=== PATIENT | male | born 1980 | race Caucasian/White ===

== ENCOUNTER 2016-09-16 14:27 | Observation (INO) | payer MEDICAID ==
[2016-09-16] MEDS ORDERED: Sodium Chloride 0.9% 1,000 ML IV ONE (14:51)
[2016-09-16] MEDS ORDERED: Sodium Chloride 0.9% 2.5 ML Syringe FLUSH PRN (14:51)
[2016-09-16] MEDS ORDERED: Sodium Chloride 0.9% 10 ML Syringe FLUSH PRN (14:51)
--- NOTE | 2016-09-16 14:55 | EDM.PDOC ---
ED HPI GENERAL MEDICAL PROBLEM - General Chief Complaint: Neuro Symptoms/Deficits Stated Complaint: SEIZURE Time Seen by Provider: 09/16/16 14:50 - History of Present Illness INITIAL COMMENTS - FREE TEXT/NARRATIVE: HISTORY AND PHYSICAL: History of present illness: Patient is a 36-year-old male with a history of prior CVA x2 who is at [facility] who presents with concern of altered mental status who became unresponsive earlier today he had some eye twitching no other motor findings and no other change from his baseline with the exception of the altered mental status. There's been no reported fever recently cough shortness of breath or other complaints Review of systems: As per history of present illness and below otherwise all systems reviewed and negative. Past medical history: As per history of present illness and as reviewed below otherwise noncontributory. Surgical history: As per history of present illness and as reviewed below otherwise noncontributory. Social history: No reported history of drug or alcohol abuse. Family history: As per history of present illness and as reviewed below otherwise noncontributory. Physical exam: HEENT: Atraumatic, normocephalic, negative for conjunctival pallor or scleral icterus, mucous membranes moist, throat clear, neck supple, nontender, trachea midline. Prior tracheostomy scar noted Lungs: Clear to auscultation, breath sounds equal bilaterally, chest nontender. Heart: S1S2, regular, negative for clicks, rubs, or JVD. Abdomen: Soft, nondistended, nontender. Negative for masses or hepatosplenomegaly. Negative for costovertebral tenderness. Pelvis: Stable nontender. Genitourinary: Deferred. Rectal: Deferred. Extremities: Atraumatic, negative for cords or calf pain. Neurovascular unremarkable. Neuro: Patient has his eyes closed any attempt to open his eyes his met with forceful closure by the patient Diagnostics: CBC CMP PT/INR troponin UA chest x-ray EKG lactic acid blood culture x2 ammonia level CT brain Therapeutics: IV O2 monitor Impression: #1 altered mental status #2 history of CVA x2 #3 rule out hepatic encephalopathy Definitive disposition and diagnosis as appropriate pending reevaluation and review of above. - Related Data Allergies Allergy/AdvReac Type Severity Reaction Status Date / Time No Known Allergies Allergy Verified 09/16/14 08:15 Social & Family History - Tobacco Use Smoking Status *Q: Never Smoker Second Hand Smoke Exposure: No - Alcohol Use Days Per Week of Alcohol Use: 0 - Recreational Drug Use Recreational Drug Use: No ED ROS GENERAL - Review of Systems Review Of Systems: ROS reveals no pertinent complaints other than HPI. ED EXAM, GENERAL - Physical Exam Exam: See Below (See dictation) Course - Vital Signs Last Recorded V/S: Last Vital Signs Temp 35.9 C 09/16/16 14:27 Pulse 91 09/16/16 14:27 Resp 10 L 09/16/16 14:27 BP 136/98 H 09/16/16 14:27 Pulse Ox 98 09/16/16 14:27 - Orders/Labs/Meds Orders: Active Orders 24 hr Category Date Time Status Cardiac Monitoring [RC] . DIRECTED Care 09/16/16 14:50 Active EKG Documentation Completion [RC] STAT Care 09/16/16 14:51 Active Oxygen Therapy, ED [RC] ASDIRECTED Care 09/16/16 14:50 Active Pulse Oximetry [RC] ASDIRECTED Care 09/16/16 14:51 Active Chest 1V Frontal [CR] Stat Exams 09/16/16 14:51 Taken Head wo Cont [CT] Stat Exams 09/16/16 14:51 Taken UA W/MICROSCOPIC [URIN] Stat Lab 09/16/16 14:51 Uncollected Sodium Chloride 0.9% [Saline Flush] Med 09/16/16 14:51 Active 10 ml FLUSH ASDIRECTED PRN Sodium Chloride 0.9% [Saline Flush] Med 09/16/16 14:51 Active 2.5 ml FLUSH ASDIRECTED PRN Saline Lock Insert [OM.PC] Stat Oth 09/16/16 14:50 Ordered Medication Orders Sodium Chloride (Saline Flush) 10 ml FLUSH ASDIRECTED PRN PRN Reason: Keep Vein Open Sodium Chloride (Saline Flush) 2.5 ml FLUSH ASDIRECTED PRN PRN Reason: Keep Vein Open Labs: Laboratory Tests 09/16/16 09/16/16 09/16/16 Range/Units 15:04 15:04 15:04 WBC 8.08 (4.0-11.0) K/uL RBC 5.98 H (4.50-5.90) M/uL Hgb 17.2 H (13.0-17.0) g/dL Hct 52.3 H (38.0-50.0) % MCV 87.5 (80.0-98.0) fL MCH 28.8 (27.0-32.0) pg MCHC 32.9 (31.0-37.0) g/dL RDW Std Deviation 44.3 (28.0-62.0) fl RDW Coeff of Claudette 14 (11.0-15.0) % Plt Count 212 (150-400) K/uL MPV 11.50 (7.40-12.00) fL Neut % (Auto) 69.5 (48.0-80.0) % Lymph % (Auto) 18.1 (16.0-40.0) % Grainger % (Auto) 10.4 (0.0-15.0) % Eos % (Auto) 1.6 (0.0-7.0) % Baso % (Auto) 0.4 (0.0-1.5) % Neut # (Auto) 5.6 (1.4-5.7) K/uL Lymph # (Auto) 1.5 (0.6-2.4) K/uL Grainger # (Auto) 0.8 (0.0-0.8) K/uL Eos # (Auto) 0.1 (0.0-0.7) K/uL Baso # (Auto) 0.0 (0.0-0.1) K/uL Nucleated RBC % 0.0 /100WBC Nucleated RBCs # 0 K/uL INR 0.97 (0.86-1.11) Lactate 1.7 (0.20-2.00) mmol/L Sodium (136-146) mmol/L Potassium (3.5-5.1) mmol/L Chloride (98-110) mmol/L Carbon Dioxide (21-31) mmol/L BUN (6.0-23.0) mg/dL Creatinine (0.6-1.5) mg/dL Est Cr Clr Drug Dosing mL/min Estimated GFR (MDRD) ml/min Glucose (60-110) mg/dL Calcium (8.8-10.8) mg/dL Total Bilirubin (0.1-1.5) mg/dL AST (5-40) IU/L ALT (8-54) IU/L Alkaline Phosphatase (40-150) Ammonia (14-68) UG/DL Troponin I (0.0-0.29) NG/ML Total Protein (6.0-8.0) g/dL Albumin (3.5-5.0) g/dL Globulin (2.0-3.5) g/dL Albumin/Globulin Ratio (1.3-2.8) Prolactin (1-23) ng/mL 09/16/16 09/16/16 09/16/16 Range/Units 15:04 15:04 15:04 WBC (4.0-11.0) K/uL RBC (4.50-5.90) M/uL Hgb (13.0-17.0) g/dL Hct (38.0-50.0) % MCV (80.0-98.0) fL MCH (27.0-32.0) pg MCHC (31.0-37.0) g/dL RDW Std Deviation (28.0-62.0) fl RDW Coeff of Claudette (11.0-15.0) % Plt Count (150-400) K/uL MPV (7.40-12.00) fL Neut % (Auto) (48.0-80.0) % Lymph % (Auto) (16.0-40.0) % Grainger % (Auto) (0.0-15.0) % Eos % (Auto) (0.0-7.0) % Baso % (Auto) (0.0-1.5) % Neut # (Auto) (1.4-5.7) K/uL Lymph # (Auto) (0.6-2.4) K/uL Grainger # (Auto) (0.0-0.8) K/uL Eos # (Auto) (0.0-0.7) K/uL Baso # (Auto) (0.0-0.1) K/uL Nucleated RBC % /100WBC Nucleated RBCs # K/uL INR (0.86-1.11) Lactate (0.20-2.00) mmol/L Sodium 137 (136-146) mmol/L Potassium 4.6 (3.5-5.1) mmol/L Chloride 101 (98-110) mmol/L Carbon Dioxide 25 (21-31) mmol/L BUN 19 (6.0-23.0) mg/dL Creatinine 0.8 (0.6-1.5) mg/dL Est Cr Clr Drug Dosing 122.31 mL/min Estimated GFR (MDRD) > 60.0 ml/min Glucose 92 (60-110) mg/dL Calcium 9.4 (8.8-10.8) mg/dL Total Bilirubin 0.4 (0.1-1.5) mg/dL AST 43 H (5-40) IU/L ALT 73 H (8-54) IU/L Alkaline Phosphatase 162 H (40-150) Ammonia 81 H (14-68) UG/DL Troponin I < 0.10 (0.0-0.29) NG/ML Total Protein 8.3 H (6.0-8.0) g/dL Albumin 3.9 (3.5-5.0) g/dL Globulin 4.4 H (2.0-3.5) g/dL Albumin/Globulin Ratio 0.9 L (1.3-2.8) Prolactin 19 (1-23) ng/mL Meds: Medications Generic Name Dose Route Start Last Admin Trade Name Freq PRN Reason Stop Dose Admin Sodium Chloride 10 ml 09/16/16 14:51 Saline Flush FLUSH ASDIRECTED PRN Keep Vein Open Sodium Chloride 2.5 ml 09/16/16 14:51 Saline Flush FLUSH ASDIRECTED PRN Keep Vein Open Discontinued Medications Generic Name Dose Route Start Last Admin Trade Name Freq PRN Reason Stop Dose Admin Sodium Chloride 1,000 mls @ 999 mls/hr 09/16/16 14:51 09/16/16 15:49 Normal Saline IV 09/16/16 15:51 999 mls/hr STAT ONE Administration Departure - Departure Time of Disposition: 16:16 Disposition: Admitted As Inpatient 65 Condition: good Clinical Impression: Altered mental status, Hyperammonemia Forms: ED Department Discharge - My Orders Last 24 Hours: My Active Orders 09/16/16 14:50 Cardiac Monitoring [RC] . DIRECTED Oxygen Therapy, ED [RC] ASDIRECTED Saline Lock Insert [OM.PC] Stat 09/16/16 14:51 EKG Documentation Completion [RC] STAT Pulse Oximetry [RC] ASDIRECTED Chest 1V Frontal [CR] Stat Head wo Cont [CT] Stat UA W/MICROSCOPIC [URIN] Stat Sodium Chloride 0.9% [Saline Flush] 10 ml FLUSH ASDIRECTED PRN Sodium Chloride 0.9% [Saline Flush] 2.5 ml FLUSH ASDIRECTED PRN - Assessment/Plan Last 24 Hours: My Active Orders 09/16/16 14:50 Cardiac Monitoring [RC] . DIRECTED Oxygen Therapy, ED [RC] ASDIRECTED Saline Lock Insert [OM.PC] Stat 09/16/16 14:51 EKG Documentation Completion [RC] STAT Pulse Oximetry [RC] ASDIRECTED Chest 1V Frontal [CR] Stat Head wo Cont [CT] Stat UA W/MICROSCOPIC [URIN] Stat Sodium Chloride 0.9% [Saline Flush] 10 ml FLUSH ASDIRECTED PRN Sodium Chloride 0.9% [Saline Flush] 2.5 ml FLUSH ASDIRECTED PRN
[2016-09-16 15:48] LABS: CHLORIDE,CL 101 mmol/L (98-110); SODIUM,NA 137 mmol/L (136-146)
--- NOTE | 2016-09-16 16:18 | CT ---
EXAM DATE: 09/16/16 PATIENT'S AGE: 36 Patient: JAMEY STROKE Facility: [facility], [place], [place] : 09/16/1970 Study: CT Head STROKE PROTOCOL -09/16/2016 2:46:11 PM Ordering Physician: justa Final Report: INDICATION: Stroke code. Technique: Technique: CT head without IV contrast. Findings: Left occipital craniectomy. Large amount of encephalomalacia and low density involving both cerebellar hemispheres consistent with prior insult either related to old infarct, postsurgical encephalomalacia, or encephalomalacia from other trauma. Comparison previous imaging of the brain would be helpful in ensuring these abnormalities are stable. Old sylvester hole right frontal calvarium. No acute intracranial hemorrhage, edema or mass effect. Minimal cerebral atrophy. Remainder negative. Impression: 1. No acute intracranial disease including no intracranial hemorrhage. 2. Postoperative changes of left occipital craniectomy with large amount of abnormal low-density and CSF density involving the cerebellar hemispheres bilaterally most consistent with encephalomalacia with possible etiologies as described above. Comparison with any available previous imaging of the brain would be helpful in ensuring this is stable. Other findings as above. Dictated by Edy Schafer MD @ Sep 16 2016 3:02PM (Electronic Signature) Report Signed by Proxy and Original Signed Document filed in the Medical Record. MTDD
--- NOTE | 2016-09-16 16:29 | CR ---
EXAM DATE: 09/16/16 PATIENT'S AGE: 36 Patient: JAMEY GRAVES Facility: [place], [place] Site . Site : [id number] Study: XRay Chest [id number]/25/2017 3:31:37 PM Ordering Physician: Jhonatan Arboleda Final Report: INDICATION: Stroke. COMPARISON: 8:20 a.m. 09/16/2014 chest radiograph. FINDINGS/IMPRESSION: Shallow inspiration. Minimal bibasilar stranding consistent with atelectasis, slightly increased. No focal lung consolidation or pleural effusion. Normal cardiomediastinal contour and the osseous structures. Dictated by Roger Kitchen MD @ 09/16/2016 3:57:54 PM Dictated by: Roger Kitchen MD @ 09/16/2016 15:58:02 (Electronic Signature) Report Signed by Proxy and Original Signed Document filed in the Medical Record. MTDD
[2016-09-16] MEDS ORDERED: Bisacodyl 10 MG Supp RECTAL PRN (22:11)
[2016-09-16] MEDS ORDERED: Albuterol/Ipratropium 3.0-0.5 MG/3 ML Neb Soln INH PRN (22:11)
[2016-09-16] MEDS ORDERED: Sodium Chloride 0.9% 1,000 ML IV SCH (22:15)
--- NOTE | 2016-09-16 22:23 | PCM.HP ---
H&P History of Present Illness - General Admit Problem/Dx: Admission Diagnosis/Problem Admission Diagnosis/Problem Altered mental status - History of Present Illness Initial Comments - Free Text/Narative: 36 yo male resident of [facility] with pmh of CVA who presents with altered mental status. He was found to be unresponsive at [facility]. He was evaluated in the ED with unremarkable head CT. His Hgb was elevated suggesting dehydration. He was given IV fluids and transfered to the floor. He is much more awake on the floor and has no complaints. From electra at baseline he can walk with one assist, has slurred speech and uses Pegtub for feedings. - Related Data Allergies/Adverse Reactions: Allergies Allergy/AdvReac Type Severity Reaction Status Date / Time No Known Allergies Allergy Verified 09/16/16 16:18 Home Medications: Home Meds Acetaminophen [Tylenol Solution] 1,000 mg PEGTUBE Q6HR PRN 09/16/16 [History] Aspirin [Adult Low Dose Aspirin EC] 81 mg PEGTUBE DAILY 09/16/16 [History] Bisacodyl [Dulcolax] 10 mg RECTAL DAILY PRN 09/16/16 [History] Cholecalciferol (Vitamin D3) [Vitamin D3] 2,000 mg PEGTUBE DAILY 09/16/16 [ History] Cyclobenzaprine HCl 5 mg PEGTUBE TID 09/16/16 [History] Docusate Sodium/Sennosides [Senna Plus] 1 tab PEGTUBE DAILY 09/16/16 [History] Ipratropium/Albuterol Sulfate [Iprat-Albut 0.5-3(2.5) mg/3 ml] 3 ml INH Q6HR PRN 09/16/16 [History] Nystatin 1 dose TOP BID 09/16/16 [History] Ondansetron [Zofran ODT] 4 mg PEGTUBE Q4HR PRN 09/16/16 [History] Pregabalin [Lyrica] 50 mg PO TID 09/16/16 [History] Ranitidine HCl 10 ml PEGTUBE BID 09/16/16 [History] Sennosides/Docusate Sodium [Sennosides-Docusate Sodium] 1 tab PEGTUBE BID [History] Sertraline HCl 25 mg PEGTUBE DAILY 09/16/16 [History] Zolpidem [Ambien] 5 mg PEGTUBE BEDTIME PRN 09/16/16 [History] atorvaSTATin Calcium [Atorvastatin Calcium] 10 mg PEGTUBE BEDTIME 09/16/16 [ History] Past Medical History Cardiovascular History: Reports: Hypertension Respiratory History: Reports: COPD, Other (see below) Other Respiratory History: pulmonary edema Gastrointestinal History: Reports: GERD Musculoskeletal History: Reports: Other (see below) Other Musculoskeletal History: hemiplegia. spondylolysis Neurological History: Reports: CVA, Other (see below) Other Neuro History: hemiplegia Psychiatric History: Reports: Depression - Past Surgical History GI Surgical History: Reports: Other (see below) Other GI Surgeries/Procedures: PEG tube Social & Family History - Tobacco Use Smoking Status *Q: Unknown Ever Smoked Second Hand Smoke Exposure: No - Caffeine Use Caffeine Use: Reports: Coffee - Alcohol Use Days Per Week of Alcohol Use: 0 - Recreational Drug Use Recreational Drug Use: No H&P Review of Systems - Review of Systems: Review Of Systems: See Below General: Reports: no symptoms HEENT: Reports: no symptoms Pulmonary: Reports: No Symptoms Cardiovascular: Reports: no symptoms Gastrointestinal: Reports: No symptoms Genitourinary: Reports: no symptoms Musculoskeletal: Reports: no symptoms Skin: Reports: no symptoms Psychiatric: Reports: no symptoms Neurological: Reports: No Symptoms Hematologic/Lymphatic: Reports: no symptoms Immunologic: Reports: no symptoms Exam - Exam Exam: See Below - Vital Signs Vital Signs: Last Vital Signs Temp 36.8 C 09/16/16 20:00 Pulse 83 09/16/16 20:00 Resp 16 09/16/16 20:00 BP 128/79 09/16/16 20:00 Pulse Ox 92 L 09/16/16 20:00 Weight: 98 kg - Exam General: alert, cooperative Lungs: Clear to auscultation, Normal respiratory effort Cardiovascular: regular rate, regular rhythm Abdomen: normal bowel sounds, soft Extremities: normal inspection Skin: warm, dry, intact Neurological: strength equal bilateral, other (full range of motion of upper and lower arms but is discordinated in movement more so on right side.) - Patient Data Lab Results last 24 hrs: Laboratory Results - last 24 hr 09/16/16 Range/Units 17:04 Urine Color YELLOW Urine Appearance CLEAR Urine pH 7.5 (5.0-8.0) Ur Specific [place] 1.010 (1.001-1.035) Urine Protein NEGATIVE (NEGATIVE) mg/dL Urine Glucose (UA) NEGATIVE (NEGATIVE) mg/dL Urine Ketones NEGATIVE (NEGATIVE) mg/dL Urine Occult Blood NEGATIVE (NEGATIVE) Urine Nitrite NEGATIVE (NEGATIVE) Urine Bilirubin NEGATIVE (NEGATIVE) Urine Urobilinogen 0.2 (<2.0) EU/dL Ur Leukocyte Esterase NEGATIVE (NEGATIVE) Urine RBC 0-2 (0-2/HPF) Urine WBC 0-2 (0-5/HPF) Ur Epithelial Cells OCCASIONAL (NONE-FEW) Urine Bacteria FEW (NEGATIVE) Result Diagrams: 09/17/16 04:24 09/17/16 04:24 *Q Meaningful Use (ADM) - VTE *Q VTE Criteria *Q: - Stroke *Q Stroke Criteria *Q: - AMI *Q AMI Criteria *Q: Problem List Initiated/Reviewed/Updated: Yes Orders Last 24hrs: Active Orders 24 hr Category Date Time Status Antiembolic Devices [RC] PER UNIT ROUTINE Care 09/16/16 22:15 Ordered Oxygen Therapy [RC] PRN Care 09/16/16 22:14 Ordered Telemetry Monitoring [Cardiac Monitoring] [RC] . Care 09/16/16 20:09 Active DIRECTED Tube Feeding [Enteral Feedings] [RC] Click To Edit Care 09/16/16 21:30 Inactive VTE/DVT Education [RC] PER UNIT ROUTINE Care 09/16/16 22:14 Ordered Vital Signs [RC] Q4H Care 09/16/16 22:14 Ordered Tube Feeding Adult Diet [DIET] Diet 09/16/16 Dinner Active BASIC METABOLIC PANEL,BMP [CHEM] AM Lab 09/17/16 05:11 Ordered CBC WITH AUTO DIFF [HEME] AM Lab 09/17/16 05:11 Ordered Albuterol/Ipratropium [DuoNeb 3.0-0.5 MG/3 ML] Med 09/16/16 22:11 Ordered 3 ml INH Q6HR PRN Aspirin [Halfprin] Med 09/17/16 09:00 Ordered 81 mg .XX DAILY Bisacodyl [Dulcolax] Med 09/16/16 22:11 Ordered 10 mg RECTAL DAILY PRN Cyclobenzaprine [Flexeril] Med 09/17/16 06:00 Ordered 5 mg GTUBE TID Docusate Sodium/Sennosides [Senna Plus] Med 09/17/16 09:00 Ordered 1 tab GTUBE BID Nystatin [Nystatin] Med 09/17/16 09:00 Ordered 1 dose TOP BID Pregabalin [Lyrica] Med 09/17/16 06:00 Ordered 50 mg PO TID Ranitidine [Zantac] Med 09/17/16 09:00 Ordered 10 ml PEGTUBE BID Sertraline [Zoloft] Med 09/17/16 09:00 Ordered 25 mg GTUBE DAILY Sodium Chloride 0.9% @ 125 MLS/HR (1000ml) Med 09/16/16 22:15 Ordered Sodium Chloride 0.9% [Normal Saline] 1,000 ml IV ASDIRECTED atorvaSTATin [Lipitor] Med 09/17/16 21:00 Ordered 10 mg GTUBE BEDTIME Sequential Compression Device [OM.PC] Per Unit Routine Oth 09/16/16 22:15 Ordered Medication Orders Albuterol/Ipratropium (Duoneb 3.0-0.5 Mg/3 Ml) 3 ml INH Q6HR PRN PRN Reason: Shortness of Breath Aspirin (Halfprin) 81 mg .XX DAILY TOBY Atorvastatin Calcium (Lipitor) 10 mg GTUBE BEDTIME TOBY Bisacodyl (Dulcolax) 10 mg RECTAL DAILY PRN PRN Reason: Constipation Cyclobenzaprine HCl (Flexeril) 5 mg GTUBE TID TOBY Non-Formulary Medication (Nystatin [Nystatin]) 1 dose TOP BID TOBY Pregabalin (Lyrica) 50 mg PO TID TOBY Ranitidine HCl (Zantac) mg PEGTUBE BID TOBY Senna/Docusate Sodium (Senna Plus) 1 tab GTUBE BID TOBY Sertraline HCl (Zoloft) 25 mg GTUBE DAILY TOBY Sodium Chloride (Saline Flush) 10 ml FLUSH ASDIRECTED PRN PRN Reason: Keep Vein Open Sodium Chloride (Saline Flush) 2.5 ml FLUSH ASDIRECTED PRN PRN Reason: Keep Vein Open Assessment/Plan Comment:: 36 yo male who presents with altered mental status likely 2/2 to dehydration. Patient was hydrate with IV fluids and his mentation came back to baseline. He was monitored overnight and discharged back to [facility]
[2016-09-17 05:12] LABS: CHLORIDE,CL 107 mmol/L (98-110); SODIUM,NA 143 mmol/L (136-146)
[2016-09-17] MEDS: Cyclobenzaprine 5 MG Tab GTUBE SCH ×2 (05:56→14:35)
[2016-09-17] MEDS: Pregabalin 50 MG Cap PO SCH ×2 (05:56→14:35)
[2016-09-17] MEDS ORDERED: Sertraline 25 MG Tab GTUBE SCH (09:00)
[2016-09-17] MEDS ORDERED: Ranitidine 15 MG/ML Syrup 10 ML UD Cup PEGTUBE SCH (09:00)
[2016-09-17] MEDS ORDERED: Aspirin 81 MG Tab.Chew SCH (09:00)
[2016-09-17] MEDS ORDERED: Nystatin Topical Powder 15 GM Bottle TOP SCH (09:00)
[2016-09-17] MEDS ORDERED: Acetaminophen 325 MG/10.15 ML ML PO PRN (09:08)
[2016-09-17 11:26] VITALS: BP 121/76
[2016-09-17] MEDS ORDERED: atorvaSTATin 10 MG Tab GTUBE SCH (21:00)
== END 2016-09-17 14:20 ==
LOC: MW.ED 14:27 → MW.MS 16:49
PROVIDERS: ADMIT Internal Medicine; ATTEND Internal Medicine
DX: R41.82 Altered mental status, unspecified (principal); E86.0 Dehydration; E72.20 Disorder of urea cycle metabolism, unspecified; I69.359 Hemiplegia and hemiparesis following cerebral infarction affecting unspecified side; Z79.82 Long term (current) use of aspirin; Z79.899 Other long term (current) drug therapy; I10 Essential (primary) hypertension; J44.9 Chronic obstructive pulmonary disease, unspecified; K21.9 Gastro-esophageal reflux disease without esophagitis; F32.9 Major depressive disorder, single episode, unspecified; Z93.1 Gastrostomy status
CPT/HCPCS: 36415; 70450; 71010; 80048; 80053; 81001; 82140; 83605; 84146; 84484; 85025; 85610; 93005; 96360; 96361; 99285; A9270; G0378; J7040; 99284

== ENCOUNTER 2016-11-18 15:29 | Observation (INO) | payer MEDICAID, MEDICARE ==
--- NOTE | 2016-11-18 15:36 | EDM.PDOC ---
ED HPI GENERAL MEDICAL PROBLEM - General Chief Complaint: Neurological Problem Stated Complaint: AMBULANCE Time Seen by Provider: 11/18/16 15:35 Source of Information: Reports: Patient - History of Present Illness INITIAL COMMENTS - FREE TEXT/NARRATIVE: HISTORY AND PHYSICAL: History of present illness: []Patient presents via ambulance from [facility] Patient has recent history of admission for altered mental status similar to today, he presents essentially unresponsive. He has a history of CVA and is in [facility] secondary to this he does require a lot of assistance he can ambulate with the help of 2 individuals and a walker on a normal basis for him. Today he was in physical therapy, is passed along that he was not enjoying physical therapy today he was then went and sat in his wheelchair developing into this episode of unresponsiveness. Ambulance was called One month prior he had an episode similar that lasted for 4 hours, his mother also relates he has had 2-3 episodes is noted that on EMS arrival he did assist the EMS in getting himself onto the ambulance gurney and then again close his eyes seemingly does not respond however patient forcefully will not allow you to open his eyes he does clear his throat. He did sit up to expectorate secretions. His mother relates during the past episode his brother had called during the episode and he woke up answered the phone and then became catatonic after a phone conversation with his brother. I discussed the case with neurology injection molding engineer Dr. Zavala she is agreeable to admission or even potentially sending him back to the senior living however ultimately affiliations admit for observation and she'll consult in the morning Review of systems: As per history of present illness and below otherwise all systems reviewed and negative. Past medical history: As per history of present illness and as reviewed below otherwise noncontributory. Surgical history: As per history of present illness and as reviewed below otherwise noncontributory. Social history: No reported history of drug or alcohol abuse. Family history: As per history of present illness and as reviewed below otherwise noncontributory. Physical exam: HEENT: Atraumatic, normocephalic, pupils reactive, negative for conjunctival pallor or scleral icterus, mucous membranes moist, throat clear, neck supple, nontender, trachea midline. Lungs: Clear to auscultation, breath sounds equal bilaterally, chest nontender. Heart: S1S2, regular, negative for clicks, rubs, or JVD. Abdomen: Soft, nondistended, nontender. Negative for masses or hepatosplenomegaly. Negative for costovertebral tenderness. Pelvis: Stable nontender. Genitourinary: Deferred. Rectal: Deferred. Extremities: Atraumatic, negative for cords or calf pain. Neurovascular unremarkable. Neuro: Awake, alert, oriented. Cranial nerves II through XII unremarkable. Cerebellum unremarkable. Motor and sensory unremarkable throughout. Exam nonfocal. Diagnostics: []Lab as below EKG Chest [address] Therapeutics: []None Impression: []Conversion disorder versus altered mental status Patient admitted for observation Definitive disposition and diagnosis as appropriate pending reevaluation and review of above. unable to verbalized Pain Score (Numeric/FACES): 0 - Related Data Allergies Allergy/AdvReac Type Severity Reaction Status Date / Time No Known Allergies Allergy Verified 11/18/16 15:31 Home Meds: Home Meds Acetaminophen [Tylenol Solution] 1,000 mg PEGTUBE Q6HR PRN 09/16/16 [History] Aspirin [Adult Low Dose Aspirin EC] 81 mg PEGTUBE DAILY 09/16/16 [History] Bisacodyl [Dulcolax] 10 mg RECTAL DAILY PRN 09/16/16 [History] Cholecalciferol (Vitamin D3) [Vitamin D3] 2,000 mg PEGTUBE DAILY 09/16/16 [ History] Cyclobenzaprine HCl 5 mg PEGTUBE TID 09/16/16 [History] Docusate Sodium/Sennosides [Senna Plus] 1 tab PEGTUBE DAILY 09/16/16 [History] Ipratropium/Albuterol Sulfate [Iprat-Albut 0.5-3(2.5) mg/3 ml] 3 ml INH Q6HR PRN 09/16/16 [History] Nystatin 1 dose TOP BID 09/16/16 [History] Ondansetron [Zofran ODT] 4 mg PEGTUBE Q4HR PRN 09/16/16 [History] Pregabalin [Lyrica] 50 mg PO TID 09/16/16 [History] Ranitidine HCl 10 ml PEGTUBE BID 09/16/16 [History] Sennosides/Docusate Sodium [Sennosides-Docusate Sodium] 1 tab PEGTUBE BID [History] Zolpidem [Ambien] 5 mg PEGTUBE BEDTIME PRN 09/16/16 [History] atorvaSTATin Calcium [Atorvastatin Calcium] 10 mg PEGTUBE BEDTIME 09/16/16 [ History] Past Medical History Cardiovascular History: Reports: Hypertension Respiratory History: Reports: COPD, Other (See Below) Other Respiratory History: pulmonary edema Gastrointestinal History: Reports: GERD Musculoskeletal History: Reports: Other (See Below) Other Musculoskeletal History: hemiplegia. spondylolysis Neurological History: Reports: CVA, Other (See Below) Other Neuro History: hemiplegia Psychiatric History: Reports: Depression - Past Surgical History GI Surgical History: Reports: Other (See Below) Social & Family History - Tobacco Use Smoking Status *Q: Unknown Ever Smoked Second Hand Smoke Exposure: No - Caffeine Use Caffeine Use: Reports: Coffee - Alcohol Use Days Per Week of Alcohol Use: 0 - Recreational Drug Use Recreational Drug Use: No ED ROS GENERAL - Review of Systems Review Of Systems: ROS reveals no pertinent complaints other than HPI. ED EXAM, GENERAL - Physical Exam Exam: See Below Course - Vital Signs Last Recorded V/S: Last Vital Signs Temp 37.4 C 11/18/16 15:32 Pulse 108 H 11/18/16 15:32 Resp 18 11/18/16 15:32 BP 146/102 H 11/18/16 15:32 Pulse Ox 94 L 11/18/16 15:32 - Orders/Labs/Meds Orders: Active Orders 24 hr Category Date Time Status EKG Documentation Completion [RC] STAT Care 11/18/16 15:34 Active Chest 1V Frontal [CR] Stat Exams 11/18/16 15:34 Taken Head wo Cont [CT] Stat Exams 11/18/16 15:34 Taken UA W/MICROSCOPIC [URIN] Stat Lab 11/18/16 17:15 Received Labs: Laboratory Tests 11/18/16 11/18/16 11/18/16 Range/Units 15:42 15:51 15:51 WBC 8.91 (4.0-11.0) K/uL RBC 5.84 (4.50-5.90) M/uL Hgb 17.0 (13.0-17.0) g/dL Hct 51.1 H (38.0-50.0) % MCV 87.5 (80.0-98.0) fL MCH 29.1 (27.0-32.0) pg MCHC 33.3 (31.0-37.0) g/dL RDW Std Deviation 44.4 (28.0-62.0) fl RDW Coeff of Claudette 14 (11.0-15.0) % Plt Count 245 (150-400) K/uL MPV 11.50 (7.40-12.00) fL Neut % (Auto) 70.4 (48.0-80.0) % Lymph % (Auto) 16.5 (16.0-40.0) % Ocean % (Auto) 10.1 (0.0-15.0) % Eos % (Auto) 2.6 (0.0-7.0) % Baso % (Auto) 0.4 (0.0-1.5) % Neut # (Auto) 6.3 H (1.4-5.7) K/uL Lymph # (Auto) 1.5 (0.6-2.4) K/uL Ocean # (Auto) 0.9 H (0.0-0.8) K/uL Eos # (Auto) 0.2 (0.0-0.7) K/uL Baso # (Auto) 0.0 (0.0-0.1) K/uL Nucleated RBC % 0.0 /100WBC Nucleated RBCs # 0 K/uL INR (0.86-1.11) Sodium 139 (136-146) mmol/L Potassium 4.4 (3.5-5.1) mmol/L Chloride 102 (98-110) mmol/L Carbon Dioxide 25 (21-31) mmol/L BUN 17 (6.0-23.0) mg/dL Creatinine 0.8 (0.6-1.5) mg/dL Est Cr Clr Drug Dosing 122.76 mL/min Estimated GFR (MDRD) > 60.0 ml/min Glucose 93 (60-110) mg/dL POC Glucose 89 (60-110) mg/dL Calcium 9.1 (8.8-10.8) mg/dL Total Bilirubin 0.5 (0.1-1.5) mg/dL AST 29 (5-40) IU/L ALT 57 H (8-54) IU/L Alkaline Phosphatase 165 H (40-150) Troponin I (0.0-0.29) NG/ML Total Protein 7.9 (6.0-8.0) g/dL Albumin 3.8 (3.5-5.0) g/dL Globulin 4.1 H (2.0-3.5) g/dL Albumin/Globulin Ratio 0.9 L (1.3-2.8) 11/18/16 11/18/16 Range/Units 15:51 16:20 WBC (4.0-11.0) K/uL RBC (4.50-5.90) M/uL Hgb (13.0-17.0) g/dL Hct (38.0-50.0) % MCV (80.0-98.0) fL MCH (27.0-32.0) pg MCHC (31.0-37.0) g/dL RDW Std Deviation (28.0-62.0) fl RDW Coeff of Claudette (11.0-15.0) % Plt Count (150-400) K/uL MPV (7.40-12.00) fL Neut % (Auto) (48.0-80.0) % Lymph % (Auto) (16.0-40.0) % Ocean % (Auto) (0.0-15.0) % Eos % (Auto) (0.0-7.0) % Baso % (Auto) (0.0-1.5) % Neut # (Auto) (1.4-5.7) K/uL Lymph # (Auto) (0.6-2.4) K/uL Ocean # (Auto) (0.0-0.8) K/uL Eos # (Auto) (0.0-0.7) K/uL Baso # (Auto) (0.0-0.1) K/uL Nucleated RBC % /100WBC Nucleated RBCs # K/uL INR 1.01 (0.86-1.11) Sodium (136-146) mmol/L Potassium (3.5-5.1) mmol/L Chloride (98-110) mmol/L Carbon Dioxide (21-31) mmol/L BUN (6.0-23.0) mg/dL Creatinine (0.6-1.5) mg/dL Est Cr Clr Drug Dosing mL/min Estimated GFR (MDRD) ml/min Glucose (60-110) mg/dL POC Glucose (60-110) mg/dL Calcium (8.8-10.8) mg/dL Total Bilirubin (0.1-1.5) mg/dL AST (5-40) IU/L ALT (8-54) IU/L Alkaline Phosphatase (40-150) Troponin I < 0.10 (0.0-0.29) NG/ML Total Protein (6.0-8.0) g/dL Albumin (3.5-5.0) g/dL Globulin (2.0-3.5) g/dL Albumin/Globulin Ratio (1.3-2.8) Meds: Medications Discontinued Medications Generic Name Dose Route Start Last Admin Trade Name Freq PRN Reason Stop Dose Admin Sodium Chloride 1,000 mls @ 999 mls/hr 11/18/16 15:40 11/18/16 15:47 Normal Saline IV 11/18/16 16:40 999 mls/hr STAT ONE Administration Departure - Departure Time of Disposition: 17:29 Disposition: Home, Self-Care 01 Condition: Good Clinical Impression: Altered mental status - Discharge Information Forms: ED Department Discharge - My Orders Last 24 Hours: My Active Orders 11/18/16 15:34 EKG Documentation Completion [RC] STAT Chest 1V Frontal [CR] Stat Head wo Cont [CT] Stat 11/18/16 17:15 UA W/MICROSCOPIC [URIN] Stat - Assessment/Plan Last 24 Hours: My Active Orders 11/18/16 15:34 EKG Documentation Completion [RC] STAT Chest 1V Frontal [CR] Stat Head wo Cont [CT] Stat 11/18/16 17:15 UA W/MICROSCOPIC [URIN] Stat
[2016-11-18] MEDS ORDERED: Sodium Chloride 0.9% 1,000 ML IV ONE (15:40)
--- NOTE | 2016-11-18 16:17 | PCM.SN ---
- Free Text/Narrative Note: called for airway management secondary to unresponsiveness. Pt nonverbal and no reaction to painful stimuli. Airway patent. IV needed. Aseptic technique several attemps per ER Nurse and myself to gain IV access. 2) 20 ga IV placed in each wrist with saline lock and secured with dressing and tape.
[2016-11-18 16:27] LABS: CHLORIDE,CL 102 mmol/L (98-110); SODIUM,NA 139 mmol/L (136-146)
--- NOTE | 2016-11-18 20:31 | PCM.HP ---
H&P History of Present Illness - General Date of Service: 11/18/16 Admit Problem/Dx: Admission Diagnosis/Problem Admission Diagnosis/Problem Altered mental status Source of Information: Family, Old Records, Provider - History of Present Illness Initial Comments - Free Text/Narative: He presented to the ED today with complaint by staff members at [facility] where he resides that he become suddenly unresponsive. He has a prior history of cerebellar and brain stem strokes resulting problems with balance and swallowing and some speech difficulty. His mother reports that in the past he has periods where he " zones out". unable to verbalized Pain Score (Numeric/FACES): 0 - Related Data Allergies/Adverse Reactions: Allergies Allergy/AdvReac Type Severity Reaction Status Date / Time No Known Allergies Allergy Verified 11/18/16 15:31 Home Medications: Home Meds Acetaminophen [Tylenol Solution] 1,000 mg PEGTUBE Q6HR PRN 09/16/16 [History] Aspirin [Adult Low Dose Aspirin EC] 81 mg PEGTUBE DAILY 09/16/16 [History] Bisacodyl [Dulcolax] 10 mg RECTAL DAILY PRN 09/16/16 [History] Cholecalciferol (Vitamin D3) [Vitamin D3] 2,000 mg PEGTUBE DAILY 09/16/16 [ History] Cyclobenzaprine HCl 5 mg PEGTUBE TID 09/16/16 [History] Docusate Sodium/Sennosides [Senna Plus] 1 tab PEGTUBE DAILY 09/16/16 [History] Ipratropium/Albuterol Sulfate [Iprat-Albut 0.5-3(2.5) mg/3 ml] 3 ml INH Q6HR PRN 09/16/16 [History] Nystatin 1 dose TOP BID 09/16/16 [History] Ondansetron [Zofran ODT] 4 mg PEGTUBE Q4HR PRN 09/16/16 [History] Pregabalin [Lyrica] 50 mg PO TID 09/16/16 [History] Ranitidine HCl 10 ml PEGTUBE BID 09/16/16 [History] Sennosides/Docusate Sodium [Sennosides-Docusate Sodium] 1 tab PEGTUBE BID [History] Zolpidem [Ambien] 5 mg PEGTUBE BEDTIME PRN 09/16/16 [History] atorvaSTATin Calcium [Atorvastatin Calcium] 10 mg PEGTUBE BEDTIME 09/16/16 [ History] Past Medical History HEENT History: Reports: None Cardiovascular History: Reports: Hypertension. Denies: Afib, CAD, Heart Failure , [place] Respiratory History: Reports: COPD, Other (See Below) Other Respiratory History: pulmonary edema Gastrointestinal History: Reports: GERD. Denies: Cirrhosis Genitourinary History: Denies: Chronic Renal Insuffiency Musculoskeletal History: Reports: Other (See Below) Other Musculoskeletal History: hemiplegia. spondylolysis Neurological History: Reports: CVA, Other (See Below) Other Neuro History: hemiplegia Psychiatric History: Reports: Depression Endocrine/Metabolic History: Reports: None. Denies: Diabetes, Type II Hematologic History: Reports: None Immunologic History: Reports: None Oncologic (Cancer) History: Reports: None Dermatologic History: Reports: None - Infectious Disease History Infectious Disease History: Reports: None - Past Surgical History GI Surgical History: Reports: Other (See Below) Other GI Surgeries/Procedures: peg tube for feeding Social & Family History - Family History Family Medical History: Noncontributory - Tobacco Use Smoking Status *Q: Unknown Ever Smoked Used Tobacco, but Quit: No Second Hand Smoke Exposure: No - Caffeine Use Caffeine Use: Reports: Coffee - Alcohol Use Days Per Week of Alcohol Use: 0 Alcohol Use Comment: unknown alcohol use history - Recreational Drug Use Recreational Drug Use: No H&P Review of Systems - Review of Systems: Review Of Systems: Unable To Obtain Free Text/Narrative: not able to obtain from the patient General: Denies: Fever, Chills Pulmonary: Denies: Shortness of Breath, Cough, Sputum Cardiovascular: Denies: Chest Pain, Palpitations Gastrointestinal: Denies: Abdominal Pain, Decreased Appetite Skin: Denies: Cyanosis Exam - Exam Exam: See Below - Vital Signs Vital Signs: Last Vital Signs Temp 99.0 F 11/18/16 19:53 Pulse 90 11/18/16 19:53 Resp 18 11/18/16 19:53 BP 126/92 H 11/18/16 19:53 Pulse Ox 92 L 11/18/16 19:53 Weight: 99.1 kg - Exam General: Other (He lies still with his eyes closed. ) Lungs: Clear to Auscultation, Normal Respiratory Effort Cardiovascular: Regular Rate, Regular Rhythm Abdomen: Soft, Other (peg tube in place ). No: Tenderness (Male) Exam: Deferred Rectal (Males) Exam: Deferred Extremities: No: Edema Neurological: No: Normal Speech Physical Exam Comments:: His eyelids are tightly closed and he resists my attempting to open his eyelids. His mouth is tightly closed When his hand is held in front of his face and dropped, he slowly lowers it to the side avoiding it touching his face - Patient Data Result Diagrams: 11/18/16 15:51 11/18/16 15:51 *Q Meaningful Use (ADM) - VTE *Q VTE Criteria *Q: - Stroke *Q Stroke Criteria *Q: - AMI *Q AMI Criteria *Q: - Problem List (1) Conversion reaction SNOMED Code(s): 48960761, 07422543 ICD Code: F44.9 - DISSOCIATIVE AND CONVERSION DISORDER, UNSPECIFIED Status : Acute Current Visit: Yes (2) History of stroke SNOMED Code(s): 864241585 ICD Code: Z86.73 - PRSNL HX OF TIA (TIA), AND CEREB INFRC W/O RESID DEFICITS Status: Acute Current Visit: Yes Problem List Initiated/Reviewed/Updated: Yes Assessment/Plan Comment:: Dr Zavala was consulted by emergency room physician . See ED physician note. Socrates Shipley MD
[2016-11-18] MEDS ORDERED: Sodium Chloride 0.9% 2.5 ML Syringe FLUSH PRN (20:33)
[2016-11-18] MEDS ORDERED: Sodium Chloride 0.9% 10 ML Syringe FLUSH PRN (20:33)
[2016-11-18] MEDS ORDERED: Ondansetron 4 MG Tab.DIS GTUBE PRN (20:34)
[2016-11-18] MEDS ORDERED: Bisacodyl 10 MG Supp RECTAL PRN (20:34)
[2016-11-18] MEDS ORDERED: Non-Formulary Medication 1 Each (Acetaminophen 1,000 MG) PEGTUBE PRN (20:34)
[2016-11-18] MEDS ORDERED: Albuterol/Ipratropium 3.0-0.5 MG/3 ML Neb Soln INH PRN (20:34)
[2016-11-18] MEDS: atorvaSTATin 10 MG Tab GTUBE SCH (22:08)
[2016-11-18] MEDS: Ranitidine 15 MG/ML Syrup 10 ML UD Cup PEGTUBE SCH (22:08)
[2016-11-18] MEDS: Pregabalin 50 MG Cap PO SCH (22:08)
[2016-11-18] MEDS: Nystatin Topical Powder 15 GM Bottle TOP SCH (22:09)
[2016-11-18] MEDS: Cyclobenzaprine 5 MG Tab GTUBE SCH (22:09)
[2016-11-19] MEDS ORDERED: Magnesium Sulfate/Water 2 GM in Premix Bag 1 BAG IV ONE (02:26)
[2016-11-19] MEDS: Cyclobenzaprine 5 MG Tab GTUBE SCH ×3 (06:42→21:04)
[2016-11-19] MEDS: Pregabalin 50 MG Cap PO SCH ×3 (06:42→21:04)
[2016-11-19] MEDS ORDERED: Acetaminophen 325 MG/10.15 ML ML PO PRN (08:16)
[2016-11-19] MEDS: Aspirin 81 MG Tab.EC SCH (08:59)
[2016-11-19] MEDS: Ranitidine 15 MG/ML Syrup 10 ML UD Cup PEGTUBE SCH ×2 (09:00→20:32)
[2016-11-19] MEDS: Cholecalciferol (Vitamin D3) 1,000 Unit Tab GTUBE SCH (09:00)
[2016-11-19] MEDS: Nystatin Topical Powder 15 GM Bottle TOP SCH ×2 (09:19→20:33)
--- NOTE | 2016-11-19 10:07 | CT ---
EXAM DATE: 11/18/16 PATIENT'S AGE: 36 Patient: JAMEY GRAVES Facility: [place], [place] Site . Site : 1980 Study: CT Head [id number]/2017 4:45:46 PM Ordering Physician: Carla Bloom Final Report: INDICATION: 36-year-old male with history of CVA. TECHNIQUE: Contiguous helical CT images were acquired from foramen magnum to the vertex without contrast. COMPARISON: Previous CT scans of the brain most recently 09/16/2016 but also 09/16/2014. FINDINGS: Again noted is a large left occipital craniectomy defect. Cystic encephalomalacia involves significant portions of the bilateral cerebellar hemispheres and cerebellar vermis with ex vacuo dilatation of the 4th ventricle. The pre pontine cistern is widened due to posterior fossa volume loss. The appearance is stable from 09/16/2016. The lateral and 3rd ventricles are normal in size and configuration. Mature referral in the right frontal calvarium likely the site of the previously removed ventricular catheter. No acute intracranial hemorrhage. No supratentorial infarction or hemorrhage. No significant changes compared to 09/16/2016. IMPRESSION: 1. Stable appearance of the brain compared to CT brain on 09/16/2016. 2. Large areas of volume loss/cystic encephalomalacia involving the bilateral cerebellar hemispheres, cerebellar vermis with associated enlargement of the 4th ventricle. Left occipital craniectomy defect. Mature sylvester hole in the right frontal calvarium. 3. No acute intracranial hemorrhage, mass effect, hydrocephalus nor evidence of supratentorial infarction at this time. Dictated by Anjel Jenkins MD @ 11/18/2016 4:54:13 PM Dictated by: Anjel Jenkins MD @ 11/18/2016 16:54:31 (Electronic Signature) Report Signed by Proxy. MARK
--- NOTE | 2016-11-19 10:08 | CR ---
EXAM DATE: 11/18/16 PATIENT'S AGE: 36 Patient: JAMEY GRAVES Facility: [place], [place] Site . Site : 1980 Study: XRay Chest [id number]/27/2017 4:52:57 PM Ordering Physician: Carla Bloom Final Report: INDICATIONS: Pain. History of strokes. TECHNIQUE: Chest 1 view. COMPARISON: Chest radiograph September 16, 2016. FINDINGS: No pneumothorax or pleural effusion. Mild bibasilar scarring or atelectasis, unchanged. The lungs are otherwise clear. Cardiac and mediastinal contours are within normal limits. Upper abdomen and osseous structures show no acute abnormality. IMPRESSION: No evidence of acute cardiopulmonary disease. Dictated by Britton Olvera MD @ 11/18/2016 5:09:56 PM Dictated by: Britton Olvera MD @ 11/18/2016 17:10:02 (Electronic Signature) Report Signed by Proxy. MARK
--- NOTE | 2016-11-19 11:39 | PCM.PN ---
- General Info Date of Service: 11/19/16 Admission Dx/Problem (Free Text): Admission Diagnosis/Problem Admission Diagnosis/Problem Altered mental status Subjective Update: Patient does not respond this am. Not the flinch and touched and squint eyes. Mother at bedside reports he has woken up a couple times, opened his eyes then closes them again. - Patient Data Vitals - most recent: Last Vital Signs Temp 97.6 F 11/19/16 08:00 Pulse 80 11/19/16 08:00 Resp 16 11/19/16 08:00 BP 118/69 11/19/16 08:00 Pulse Ox 94 L 11/19/16 08:00 Weight - most recent: 99.5 kg I&O - last 24 hours: Intake & Output 11/18/16 11/19/16 11/19/16 22:59 06:59 14:59 Intake Total 1350 Output Total 600 Balance 750 Lab Results last 24 hrs: Laboratory Results - last 24 hr 11/19/16 Range/Units 06:06 Magnesium 2.3 (1.5-2.3) mEq/L Med Orders - Current: Current Medications Acetaminophen (Tylenol) 1,000 mg PO Q6H PRN PRN Reason: Pain/Fever Albuterol/Ipratropium (Duoneb 3.0-0.5 Mg/3 Ml) 3 ml INH Q6HR PRN PRN Reason: Shortness of Breath Aspirin (Halfprin) 81 mg .XX DAILY [facility] Last Admin: 11/19/16 08:59 Dose: 81 mg Atorvastatin Calcium (Lipitor) 10 mg GTUBE BEDTIME [facility] Last Admin: 11/18/16 22:08 Dose: 10 mg Bisacodyl (Dulcolax) 10 mg RECTAL DAILY PRN PRN Reason: Constipation Cholecalciferol (Vitamin D3) 2,000 units GTUBE DAILY [facility] Last Admin: 11/19/16 09:00 Dose: 2,000 units Cyclobenzaprine HCl (Flexeril) 5 mg GTUBE TID [facility] Last Admin: 11/19/16 06:42 Dose: 5 mg Nystatin (Nystop) 0 gm TOP BID [facility] Last Admin: 11/19/16 09:19 Dose: 15 applic Ondansetron HCl (Zofran Odt) 4 mg GTUBE Q4HR PRN PRN Reason: Nausea/Vomiting Pregabalin (Lyrica) 50 mg PO TID [facility] Last Admin: 11/19/16 06:42 Dose: 50 mg Ranitidine HCl (Zantac) 150 mg PEGTUBE BID [facility] Last Admin: 11/19/16 09:00 Dose: 150 mg Senna/Docusate Sodium (Senna Plus) 1 tab GTUBE DAILY [facility] Last Admin: 11/19/16 09:00 Dose: 1 tab Senna/Docusate Sodium (Senna Plus) 1 tab GTUBE BID [facility] Last Admin: 11/19/16 09:00 Dose: 1 tab Sodium Chloride (Saline Flush) 10 ml FLUSH ASDIRECTED PRN PRN Reason: Keep Vein Open Sodium Chloride (Saline Flush) 2.5 ml FLUSH ASDIRECTED PRN PRN Reason: Keep Vein Open Zaleplon (Sonata) 10 mg GTUBE BEDTIME PRN PRN Reason: Sleep Discontinued Medications Sodium Chloride (Normal Saline) 1,000 mls @ 999 mls/hr IV STAT ONE Stop: 11/18/16 16:40 Last Admin: 11/18/16 15:47 Dose: 999 mls/hr Magnesium Sulfate 2 gm/ Premix 50 mls @ 50 mls/hr IV ONETIME ONE Stop: 11/19/16 03:25 Last Admin: 11/19/16 03:56 Dose: 50 mls/hr Non-Formulary Medication (Acetaminophen) 1,000 mg PEGTUBE Q6H PRN PRN Reason: Pain/Fever - Exam General: other (not verbal and does not open eyes. Squints tightly to not allow opening of his eyes). No: cooperative HEENT: Pupils equal, Pupils reactive, Mucous membr. moist/pink Lungs: Clear to auscultation, Normal respiratory effort Cardiovascular: Regular Rate, Regular Rhythm Abdomen: bowel sounds present, soft, no tenderness, no distension Extremities: no edema, normal pulses - Problem List & Annotations (1) Altered mental status SNOMED Code(s): 965148869 Code(s): R41.82 - ALTERED MENTAL STATUS, UNSPECIFIED Status: Acute Current Visit: Yes (2) Conversion reaction SNOMED Code(s): 86664451, 42888851 Code(s): F44.9 - DISSOCIATIVE AND CONVERSION DISORDER, UNSPECIFIED Status: Acute Current Visit: Yes (3) History of CVA (cerebrovascular accident) SNOMED Code(s): 284899170 Code(s): Z86.73 - PRSNL HX OF TIA (TIA), AND CEREB INFRC W/O RESID DEFICITS Status: Chronic Current Visit: Yes - Problem List Review Problem List Initiated/Reviewed/Updated: Yes - My Orders Last 24 Hours: My Active Orders 11/19/16 10:32 Remove Fisher Catheter [Urinary Catheter Removal] [RC] Per Unit Routine - Plan Plan:: This 36 year old male with pmh of CVA, [facility] resident presented with AMS. 1. AMS: No leukocytosis or infection noted. Dr. Zavala consulted, ordered EEG this am and will read this and see patient. Per Dr. Zavala EEG normal, likely conversion reaction. Restart Zoloft today. Will remove fisher Unable to discharge back to [facility] today, they will not accept later in afternoon, will DC in am. 2. HX CVA: Unable to swallow, Continue PEG feedings as per routine. VTE prophylaxis: Lovenox Dispo: Likely in am.
[2016-11-19] MEDS ORDERED: Enoxaparin 40 MG/0.4 ML Syringe SUBCUT SCH (12:00)
--- NOTE | 2016-11-19 17:13 | PCM.CONS ---
H&P History of Present Illness - General Admit Problem/Dx: Admission Diagnosis/Problem Admission Diagnosis/Problem Altered mental status - History of Present Illness Initial Comments - Free Text/Narative: 36 year old man admitted after an episode of unresponsiveness. He was admitted on September 16, 2016 with altered mental status. He was found unresponsive at the [facility]. He underwent evaluation in the emergency department and underwent head CT. Mental status improved over several hours. Antidepressant was subsequently stopped as possible culprit. Yesterday, he was again found unresponsive. It was noted that he was unresponsive, then would assist in his transfer from bed to bed then go back to being unresponsive. He also resisted opening of his eyes when unresponsive. 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 No source identified. He was hospitalized [facility]. Deficits since stroke include dysarthria, dysphagia, right side deficits. He has also suffered from depression. He moved from facility in [place] to [facility] in August. unable to verbalized Pain Score (Numeric/FACES): 0 - Related Data Allergies/Adverse Reactions: Allergies Allergy/AdvReac Type Severity Reaction Status Date / Time No Known Allergies Allergy Verified 11/18/16 15:31 Home Medications: Home Meds Acetaminophen [Tylenol Solution] 1,000 mg PEGTUBE Q6HR PRN 09/16/16 [History] Aspirin [Adult Low Dose Aspirin EC] 81 mg PEGTUBE DAILY 09/16/16 [History] Bisacodyl [Dulcolax] 10 mg RECTAL DAILY PRN 09/16/16 [History] Cholecalciferol (Vitamin D3) [Vitamin D3] 2,000 mg PEGTUBE DAILY 09/16/16 [ History] Cyclobenzaprine HCl 5 mg PEGTUBE TID 09/16/16 [History] Docusate Sodium/Sennosides [Senna Plus] 1 tab PEGTUBE DAILY 09/16/16 [History] Ipratropium/Albuterol Sulfate [Iprat-Albut 0.5-3(2.5) mg/3 ml] 3 ml INH Q6HR PRN 09/16/16 [History] Nystatin 1 dose TOP BID 09/16/16 [History] Ondansetron [Zofran ODT] 4 mg PEGTUBE Q4HR PRN 09/16/16 [History] Ranitidine HCl 10 ml PEGTUBE BID 09/16/16 [History] Sennosides/Docusate Sodium [Sennosides-Docusate Sodium] 1 tab PEGTUBE BID [History] atorvaSTATin Calcium [Atorvastatin Calcium] 10 mg PEGTUBE BEDTIME 09/16/16 [ History] Pregabalin [Lyrica] 50 mg PO TID #30 cap 11/19/16 [Rx] Sertraline [Zoloft] 25 mg PO DAILY #30 tablet 11/19/16 [Rx] Zolpidem [Ambien] 5 mg PEGTUBE BEDTIME PRN #10 tablet 11/19/16 [Rx] Past Medical History HEENT History: Reports: None Cardiovascular History: Reports: Hypertension Respiratory History: Reports: COPD, Other (See Below) Other Respiratory History: pulmonary edema Gastrointestinal History: Reports: GERD Genitourinary History: Denies: Chronic Renal Insuffiency Musculoskeletal History: Reports: Other (See Below) Other Musculoskeletal History: hemiplegia. spondylolysis Neurological History: Reports: CVA, Other (See Below) Other Neuro History: hemiplegia Psychiatric History: Reports: Depression Endocrine/Metabolic History: Reports: None Hematologic History: Reports: None Immunologic History: Reports: None Oncologic (Cancer) History: Reports: None Dermatologic History: Reports: None - Infectious Disease History Infectious Disease History: Reports: None - Past Surgical History GI Surgical History: Reports: Other (See Below) Other GI Surgeries/Procedures: peg tube for feeding Male Surgical History: Reports: Other (See Below) Other Male Surgeries/Procedures: Cystostomy Musculoskeletal Surgical History: Reports: Other (See Below) Other Musculoskeletal Surgeries/Procedures:: arthropathy Social & Family History - Family History Family Medical History: Noncontributory (maternal grandfather had a stroke, no history of seizure) - Tobacco Use Smoking Status *Q: Former Smoker Used Tobacco, but Quit: No Second Hand Smoke Exposure: No - Caffeine Use Caffeine Use: Reports: Coffee - Alcohol Use Days Per Week of Alcohol Use: 0 - Recreational Drug Use Recreational Drug Use: No H&P Review of Systems - Review of Systems: Review Of Systems: Unable To Obtain (nonverbal) Exam - Exam Exam: See Below - Vital Signs Vital Signs: Last Vital Signs Temp 37.0 C 11/19/16 16:00 Pulse 96 11/19/16 16:00 Resp 18 11/19/16 16:00 BP 132/82 11/19/16 16:00 Pulse Ox 91 L 11/19/16 16:00 Weight: 99.5 kg - Exam Physical Exam Comments:: CV: RRR Resp: CTAB Neuro Mental status: does follow commands, or open eyes to voice. He did open his eyes while I was speaking to his mother. Forcibly closes eye with attempt open eyes. CN: unable to visualize pupil or EOM and pt keeps them forcibly closed, face is symmetric Motor: Moves lower limbs in response to noxious stimuli Reflexes 2+ throughout - Patient Data Lab Results Last 24 hrs: Laboratory Results - last 24 hr 11/19/16 Range/Units 06:06 Magnesium 2.3 (1.5-2.3) mEq/L Result Diagrams: 11/18/16 15:51 11/18/16 15:51 Imaging Impressions Last 24 hrs: EEG today was normal with background of 8-9 hz and no seizure activity. He was in state of unresponsiveness during procedure. Consult PN Assessment/Plan Procedures: Procedures ASSAY OF AMMONIA (09/16/16) ASSAY OF LACTIC ACID (09/16/16) ASSAY OF PROLACTIN (09/16/16) ASSAY OF TROPONIN QUANT (09/16/16) ASSAY THYROID STIM HORMONE (10/09/16) C-REACTIVE PROTEIN (09/16/14) CHEST X-RAY 1 VIEW FRONTAL (09/16/16) COMPLETE CBC W/AUTO DIFF WBC (09/16/16) COMPREHEN METABOLIC PANEL (09/16/16) CT HEAD/BRAIN W/O DYE (09/16/16) CT SOFT TISSUE NECK W/DYE (09/16/14) CULTURE SCREEN ONLY (09/16/14) ELECTROCARDIOGRAM TRACING (09/16/16) EMERGENCY DEPT VISIT (09/16/16) HYDRATE IV INFUSION ADD-ON (09/16/16) HYDRATION IV INFUSION INIT (09/16/16) INFLUENZA ASSAY W/OPTIC (09/16/14) LIPID PANEL (10/09/16) METABOLIC PANEL TOTAL CA (10/09/16) PROTHROMBIN TIME (09/16/16) ROUTINE VENIPUNCTURE (09/16/16) STREP A AG IA (09/16/14) THER/PROPH/DIAG INJ IV PUSH (09/16/14) URINALYSIS AUTO W/SCOPE (09/16/16) Problem List Initiated/Reviewed/Updated: Yes My Orders last 24 hours: My Active Orders 11/19/16 10:51 EEG Awake Drowsy [RC] ROUTINE Plan: Altered mental status: There is compelling clinical evidence of nonorganic cause of his altered mental status from multiple witnessed accounts. Normal EEG is evidence against organic encephalopathy. Differential psychogenic vs. malingering with the former being more likely .
[2016-11-19] MEDS: atorvaSTATin 10 MG Tab GTUBE SCH (20:33)
[2016-11-19] MEDS ORDERED: Sertraline 25 MG Tab PO SCH (21:00)
[2016-11-20] MEDS: Pregabalin 50 MG Cap PO SCH (05:51)
[2016-11-20] MEDS: Cyclobenzaprine 5 MG Tab GTUBE SCH (05:51)
--- NOTE | 2016-11-20 08:03 | PCM.DCSUM1 ---
Discharge Summary - Hospital Course Brief History: This 36 year old male presented to the ED with complaint by staff members at [facility] where he resides that he become suddenly unresponsive. He has a prior history of cerebellar and brain stem strokes resulting problems with balance and swallowing and some speech difficulty. . His mother reports that in the past he has periods where he " zones out". - Discharge Data Discharge Date: 11/20/16 Discharge Disposition: Home, Self-Care 01 Condition: Good - Discharge Diagnosis/Problem(s) (1) Altered mental status SNOMED Code(s): 316480391 ICD Code: R41.82 - ALTERED MENTAL STATUS, UNSPECIFIED Status: Acute Current Visit: Yes (2) Conversion reaction SNOMED Code(s): 71077535, 58602708 ICD Code: F44.9 - DISSOCIATIVE AND CONVERSION DISORDER, UNSPECIFIED Status : Acute Current Visit: Yes (3) History of CVA (cerebrovascular accident) SNOMED Code(s): 889578908 ICD Code: Z86.73 - PRSNL HX OF TIA (TIA), AND CEREB INFRC W/O RESID DEFICITS Status: Chronic Current Visit: Yes - Patient Instructions Diet: NPO Other/Special Instructions: Tube feedingd: Jevity 1.5 Give 114 ml/hr per PEG for 13 hours. Water flush 300 ml Q4 hours. Check residual every shift. May suction self as needed - Discharge Plan Prescriptions/Med Rec: Pregabalin [Lyrica] 50 mg PO TID #30 cap Sertraline [Zoloft] 25 mg PO DAILY #30 tablet Zolpidem [Ambien] 5 mg PEGTUBE BEDTIME PRN #10 tablet PRN Reason: Sleep Home Medications: Home Meds Acetaminophen [Tylenol Solution] 1,000 mg PEGTUBE Q6HR PRN 09/16/16 [History] Aspirin [Adult Low Dose Aspirin EC] 81 mg PEGTUBE DAILY 09/16/16 [History] Bisacodyl [Dulcolax] 10 mg RECTAL DAILY PRN 09/16/16 [History] Cholecalciferol (Vitamin D3) [Vitamin D3] 2,000 mg PEGTUBE DAILY 09/16/16 [ History] Cyclobenzaprine HCl 5 mg PEGTUBE TID 09/16/16 [History] Docusate Sodium/Sennosides [Senna Plus] 1 tab PEGTUBE DAILY 09/16/16 [History] Ipratropium/Albuterol Sulfate [Iprat-Albut 0.5-3(2.5) mg/3 ml] 3 ml INH Q6HR PRN 09/16/16 [History] Nystatin 1 dose TOP BID 09/16/16 [History] Ondansetron [Zofran ODT] 4 mg PEGTUBE Q4HR PRN 09/16/16 [History] Ranitidine HCl 10 ml PEGTUBE BID 09/16/16 [History] Sennosides/Docusate Sodium [Sennosides-Docusate Sodium] 1 tab PEGTUBE BID [History] atorvaSTATin Calcium [Atorvastatin Calcium] 10 mg PEGTUBE BEDTIME 09/16/16 [ History] Pregabalin [Lyrica] 50 mg PO TID #30 cap 11/19/16 [Rx] Sertraline [Zoloft] 25 mg PO DAILY #30 tablet 11/19/16 [Rx] Zolpidem [Ambien] 5 mg PEGTUBE BEDTIME PRN #10 tablet 11/19/16 [Rx] Patient Handouts: Pregabalin capsules, Pregabalin oral solution, Sertraline tablets, Zolpidem tablets Referrals: Carlton Jha MD [Primary Care Provider] - 11/27/16 (On his next [facility] rounds. ) - Discharge Summary/Plan Comment DC Time >30 min.: No Discharge Summary/Plan Comment: Discharge Diagnoses: AMS-resolved Conversion HX CVA Ron was admitted and observed. There were moments of some altered mental state or unresponsiveness but patient would have present reflexes and slowly move hand from falling on face. At times he would sit up and cough and lie back down and tightly keep eyes closed. Dr. mixon was consulted, EEG performed, with per her verbal report was completely negative. Please see her consultation. She felt she should be transferred back to [facility] to be in well known environment and to be restarted on his antidepressant which was stopped a few months ago, reports per mother. He will be discharge back to [facility] this morning. No changes to current medications. I spoke with Dr. Jha, PCP, who is aware of admission and Dr. Mixon's consulation. Will restart Sertraline 25 mg daily and he will monitor at [facility]. Mother notified yesterday and agreed with transfer back to [facility]. They are to contact Dr. Jha or return to ED if any concerns should arise. - General Info Subjective Update: Alert and answers yes and no questions this morning, Suctions self during assessment. Denies any pain and is agreeable to return to [facility]. Functional Status: Reports: pain controlled - Patient Data Vitals - Most Recent: Last Vital Signs Temp 96.4 F 11/20/16 04:00 Pulse 90 11/20/16 04:00 Resp 16 11/20/16 04:00 BP 123/80 11/20/16 04:00 Pulse Ox 94 L 11/20/16 04:00 Weight - Most Recent: 99.5 kg I&O - Last 24 hours: Intake & Output 11/19/16 11/20/16 11/20/16 22:59 06:59 14:59 Intake Total 900 2001 Output Total 1750 650 Balance -850 1351 Med Orders - Current: Current Medications Acetaminophen (Tylenol) 1,000 mg PO Q6H PRN PRN Reason: Pain/Fever Albuterol/Ipratropium (Duoneb 3.0-0.5 Mg/3 Ml) 3 ml INH Q6HR PRN PRN Reason: Shortness of Breath Aspirin (Halfprin) 81 mg .XX DAILY [facility] Last Admin: 11/19/16 08:59 Dose: 81 mg Atorvastatin Calcium (Lipitor) 10 mg GTUBE BEDTIME [facility] Last Admin: 11/19/16 20:33 Dose: 10 mg Bisacodyl (Dulcolax) 10 mg RECTAL DAILY PRN PRN Reason: Constipation Cholecalciferol (Vitamin D3) 2,000 units GTUBE DAILY [facility] Last Admin: 11/19/16 09:00 Dose: 2,000 units Cyclobenzaprine HCl (Flexeril) 5 mg GTUBE TID [facility] Last Admin: 11/20/16 05:51 Dose: 5 mg Enoxaparin Sodium (Lovenox) 40 mg SUBCUT Q24H [facility] Last Admin: 11/19/16 12:19 Dose: 40 mg Nystatin (Nystop) 0 gm TOP BID [facility] Last Admin: 11/19/16 20:33 Dose: 1 applic Ondansetron HCl (Zofran Odt) 4 mg GTUBE Q4HR PRN PRN Reason: Nausea/Vomiting Pregabalin (Lyrica) 50 mg PO TID [facility] Last Admin: 11/20/16 05:51 Dose: 50 mg Ranitidine HCl (Zantac) 150 mg PEGTUBE BID [facility] Last Admin: 11/19/16 20:32 Dose: 150 mg Senna/Docusate Sodium (Senna Plus) 1 tab GTUBE DAILY [facility] Last Admin: 11/19/16 09:00 Dose: 1 tab Senna/Docusate Sodium (Senna Plus) 1 tab GTUBE BID [facility] Last Admin: 11/19/16 20:32 Dose: 1 tab Sertraline HCl (Zoloft) 25 mg PO BEDTIME [facility] Last Admin: 11/19/16 20:33 Dose: 25 mg Sodium Chloride (Saline Flush) 10 ml FLUSH ASDIRECTED PRN PRN Reason: Keep Vein Open Sodium Chloride (Saline Flush) 2.5 ml FLUSH ASDIRECTED PRN PRN Reason: Keep Vein Open Zaleplon (Sonata) 10 mg GTUBE BEDTIME PRN PRN Reason: Sleep Discontinued Medications Sodium Chloride (Normal Saline) 1,000 mls @ 999 mls/hr IV STAT ONE Stop: 11/18/16 16:40 Last Admin: 11/18/16 15:47 Dose: 999 mls/hr Magnesium Sulfate 2 gm/ Premix 50 mls @ 50 mls/hr IV ONETIME ONE Stop: 11/19/16 03:25 Last Admin: 11/19/16 03:56 Dose: 50 mls/hr Non-Formulary Medication (Acetaminophen) 1,000 mg PEGTUBE Q6H PRN PRN Reason: Pain/Fever - Exam General: Reports: alert, cooperative, no acute distress Lungs: Reports: Clear to auscultation, Normal respiratory effort Cardiovascular: Reports: Regular Rate, Regular Rhythm, No Murmurs Abdomen: Reports: bowel sounds present, soft, no tenderness, no distension Extremities: Reports: no edema, normal pulses Neurological: Reports: no new focal deficit Psy/Mental Status: Reports: alert, normal affect, normal mood *Q Meaningful Use (DIS) - VTE *Q VTE Criteria *Q: - Stroke *Q Stroke Criteria *Q: - AMI *Q AMI Criteria *Q:
[2016-11-20 08:18] VITALS: BP 127/85
[2016-11-20] MEDS: Ranitidine 15 MG/ML Syrup 10 ML UD Cup PEGTUBE SCH (09:16)
[2016-11-20] MEDS: Aspirin 81 MG Tab.EC SCH (09:17)
[2016-11-20] MEDS: Cholecalciferol (Vitamin D3) 1,000 Unit Tab GTUBE SCH (09:17)
[2016-11-20] MEDS: Nystatin Topical Powder 15 GM Bottle TOP SCH (09:18)
== END 2016-11-20 10:05 | disposition home or self-care (01) ==
LOC: MW.ED 15:29 → MW.MS 17:30
PROVIDERS: ADMIT Family Medicine; ATTEND Family Medicine
DX: F44.9 Dissociative and conversion disorder, unspecified (principal); I10 Essential (primary) hypertension; J44.9 Chronic obstructive pulmonary disease, unspecified; K21.9 Gastro-esophageal reflux disease without esophagitis; F32.9 Major depressive disorder, single episode, unspecified; G81.90 Hemiplegia, unspecified affecting unspecified side; M47.9 Spondylosis, unspecified; Z86.73 Personal history of transient ischemic attack (TIA), and cerebral infarction without residual deficits; Z87.891 Personal history of nicotine dependence; Z79.82 Long term (current) use of aspirin; Z79.899 Other long term (current) drug therapy; Z93.1 Gastrostomy status
CPT/HCPCS: 36415; 51702; 70450; 71010; 80053; 81001; 82962; 83735; 84484; 85025; 85610; 93005; 95816; 96361; 96372; 96374; 99285; A9270; G0378; J1650; J3475; J7040; 36410; 96360

== ENCOUNTER 2020-06-21 01:11 | Emergency (ER) | payer MEDICARE, MEDICAID ==
[2020-06-21] MEDS ORDERED: Iopamidol 612 MG/ML 100 ML Bottle IARTIC STA (03:38)
--- NOTE | 2020-06-21 03:41 | CR ---
INDICATION: Peg tube placement TECHNIQUE: Abdominal radiograph 1 view. Contrast was injected into the PEG tube with no radiologist in attendance. COMPARISON: None FINDINGS: Bowel: The bowel gas pattern is normal without evidence of bowel obstruction. Most of the right flank, lower abdomen and pelvis is excluded. There is a PEG tube present with contrast in the tubing as well as opacifying the gastric fundus. Soft tissue: No evidence of pneumoperitoneum present. No suspicious calcifications noted. An IVC filter is present and in the right paraspinal region. Bone: Unremarkable for age. IMPRESSION: 1. There is a PEG tube present with contrast in the tubing as well as opacifying the gastric fundus. Dictated by Lan Barba MD @ 06/21/2020 3:40:28 AM Dictated by: Lan Barba MD @ 06/21/2020 03:40:33 (Electronically Signed)
--- NOTE | 2020-06-21 03:58 | EDM.PDOC ---
ED HPI GENERAL MEDICAL PROBLEM - General Chief Complaint: Gastrointestinal Problem Stated Complaint: ABDOMINAL PAIN Time Seen by Provider: 06/21/20 01:38 - History of Present Illness INITIAL COMMENTS - FREE TEXT/NARRATIVE: CHIEF COMPLAINT(S): PEG tube dislodgment HISTORY OF PRESENT ILLNESS: This is a 39-year-old man who is a resident of [place] with a past medical history of CVA who is wheelchair-bound who comes to the emergency department with a chief complaint of PEG tube dislodgment. The patient is alert and states that approximately 1 hour ago his PEG tube was dislodged. He denies any current pain or any other abnormalities. He states that he had a PEG tube placed a long time ago. He denies any fever, chills, redness, chest pain, shortness of breath, abdominal pain, nausea or vomiting. REVIEW OF SYSTEMS: Constitutional: Denies fever, chills. Eyes: Denies eye pain Ears, Nose, Mouth, & Throat: Denies earache Cardiovascular: Denies chest pain Respiratory: Denies shortness of breath Gastrointestinal: Positive for PEG tube dislodgment denies Nausea, vomiting, diarrhea, hematochezia. Genitourinary: Denies hematuria Skin:Denies a rash Neurological: Denies blurred vision Psychiatric: Denies depression PAST MEDICAL HISTORY: As per history of present illness and as reviewed below otherwise noncontributory. SURGICAL HISTORY: As per history of present illness and as reviewed below otherwise noncontributory. SOCIAL HISTORY: As per history of present illness and as reviewed below otherwise noncontributory. FAMILY HISTORY: As per history of present illness and as reviewed below otherwise noncontributory. EXAMINATION OF ORGAN SYSTEMS/BODY AREAS: Constitutional: Blood pressure was 116/78, heart rate 78, respiratory rate 18 with an oxygen saturation 97% on room air. Temperature 35.8 temporally General: Overall well-appearing man who is in no acute distress Psychiatric: Appropriate mood and affect. Eyes: No scleral icterus or conjunctival erythema ENMT: Moist mucous membranes. No pharyngeal erythema Cardiovascular: Regular, rate, and rhythm. No gallops, murmurs, or rubs. Bilateral upper extremity pulses symmetric and intact. No peripheral edema. No JVD. Respiratory: Lungs clear to auscultation bilaterally. No wheezes, rales, or rhonchi. Gastrointestinal: Soft, non-tender, non-distended. Normoactive bowel sounds there appears to be area where the PEG tube was inserted. There is some dried blood around this likely secondary to traumatic removal of the PEG tube. Otherwise no abnormality Genitourinary: No suprapubic tenderness Musculoskeletal: Normal range of motion. Skin: No lesions or abrasions. No surrounding erythema around the PEG tube insertion site Neurological: Alert, GCS 15 MEDICAL DECISION MAKING AND COURSE IN THE ED WITH INTERPRETATION/REVIEW OF DIAGNOSTIC STUDIES: This is a 39-year-old man who is a resident of [place] who comes to the emergency department with PEG tube dislodgment. At this time there is no signs of infection however there is some signs of traumatic removal of the PEG tube given the dried blood. I did place a 18 Mexican Boss catheter in the PEG tube insertion site to keep the area patent until a PEG tube could be found. The Boss catheter was removed and a 20 Mexican PEG tube was inserted without any complication. Will obtain a tube placement x-ray. Tube placement x-ray reveals a PEG tube with contrast in the tubing as well as opacifying the gastric fundus indicating proper positioning. After confirming position we did contact [facility] and they would come and sweet pickle maker the patient. At this time I did discuss with patient and placed in the discharge paperwork that the site did have some blood therefore the area should be kept clean and dry. They should evaluate for any signs of infection and if there are any signs to return to the emergency department. The patient was amenable to discharge at this time and had no further questions. DISPOSITION: The patient was discharged home in stable condition. The patient w ill follow up with PCP as needed CONDITION: Fair PROCEDURES: PEG tube placement FINAL IMPRESSION(S)/DIAGNOSES: 1. Acute traumatic PEG tube displacement status post PEG tube reinsertion Dhiraj Young M.D. - Related Data Allergies Allergy/AdvReac Type Severity Reaction Status Date / Time No Known Allergies Allergy Verified 06/21/20 01:17 Home Meds: Home Meds Acetaminophen [Tylenol Solution 160 MG/5 ML] 1,000 mg PEGTUBE Q6HR PRN 09/16/16 [History] Aspirin [Adult Low Dose Aspirin EC] 81 mg PEGTUBE DAILY 09/16/16 [History] Cholecalciferol (Vitamin D3) [Vitamin D3] 2,000 mg PEGTUBE DAILY 09/16/16 [History] Ondansetron [Zofran ODT] 4 mg PEGTUBE Q4HR PRN 09/16/16 [History] Sennosides/Docusate Sodium [Sennosides-Docusate Sodium] 1 tab PEGTUBE BID 09/16/16 [History] atorvaSTATin Calcium [Atorvastatin Calcium] 10 mg PEGTUBE BEDTIME 09/16/16 [History] raNITIdine HCL [Ranitidine HCl] 10 ml PEGTUBE BID 09/16/16 [History] Pregabalin [Lyrica] 50 mg PO TID #30 cap 11/19/16 [Rx] Sertraline [Zoloft] 25 mg PO DAILY #30 tablet 11/19/16 [Rx] Losartan Potassium 50 mg PO DAILY 04/17/17 [History] Past Medical History HEENT History: Reports: None Cardiovascular History: Reports: Hypertension Respiratory History: Reports: COPD, Other (See Below) Other Respiratory History: pulmonary edema Gastrointestinal History: Reports: GERD Genitourinary History: Reports: None Musculoskeletal History: Reports: Other (See Below) Other Musculoskeletal History: hemiplegia. spondylolysis Neurological History: Reports: CVA, Other (See Below) Other Neuro History: hemiplegia Psychiatric History: Reports: Depression Endocrine/Metabolic History: Reports: None Insulin Pump Model and Machine Iii Coremaker: None Hematologic History: Reports: None Immunologic History: Reports: None Oncologic (Cancer) History: Reports: None Dermatologic History: Reports: None - Infectious Disease History Infectious Disease History: Reports: None - Past Surgical History GI Surgical History: Reports: Other (See Below) Other GI Surgeries/Procedures: PEG tube for feeding Male Surgical History: Reports: Other (See Below) Other Male Surgeries/Procedures: Cystostomy Musculoskeletal Surgical History: Reports: Other (See Below) Other Musculoskeletal Surgeries/Procedures:: arthropathy Social & Family History - Family History Family Medical History: No Pertinent Family History - Caffeine Use Caffeine Use: Reports: Coffee ED ROS GENERAL - Review of Systems Review Of Systems: See Below ED EXAM, GENERAL - Physical Exam Exam: See Below Course - Vital Signs Last Recorded V/S: Last Vital Signs Temp 36.1 C 06/21/20 05:10 Pulse 84 06/21/20 05:10 Resp 18 06/21/20 05:10 BP 112/80 06/21/20 05:10 Pulse Ox 96 06/21/20 05:10 - Orders/Labs/Meds Meds: Medications Discontinued Medications Generic Name Dose Route Start Last Admin Trade Name Noemi PRN Reason Stop Dose Admin Iopamidol 40 ml 06/21/20 03:38 06/21/20 03:44 Isovue-300 (61%) IARTIC 06/21/20 03:39 40 ml ONETIME STA Administration Departure - Departure Time of Disposition: 03:55 Disposition: DC/Tfer to [facility] Condition: Fair Clinical Impression: Malfunction of percutaneous endoscopic gastrostomy (PEG) tube - Discharge Information *PRESCRIPTION DRUG MONITORING PROGRAM REVIEWED*: No *COPY OF PRESCRIPTION DRUG MONITORING REPORT IN PATIENT TRISH: No Instructions: PEG Tube Home Guide, [id number] Referrals: PCP,None [Primary Care Provider] - Forms: ED Department Discharge Additional Instructions: You were evaluated today on an emergent basis. Given that the PEG tube had dislodged we did replace with a brand-new PEG tube. We did get imaging which did show proper placement. If you have any new or worsening symptoms please return to the emergency department. There was some traumatic bleeding from the removal of the PEG tube. This should improve with time. Just keep the area clean and dry. [facility] - Primary Care [address] [place] [address] [address] The patient is informed of any results of their evaluation and diagnostic workup and all questions are answered. They are given discharge instructions and return precautions. The patient is stable for discharge. The patient states they understand and agree with the plan and that they will return if their symptoms get worse or if they have any new concerns. The following information is given to patients seen in the emergency department who are being discharged to home. This information is to outline your options for follow-up care. We provide all patients seen in our emergency department with a follow-up referral. The need for follow-up, as well as the timing and circumstances, are variable depending upon the specifics of your emergency department visit. If you don't have a primary care physician on staff, we will provide you with a referral. We always advise you to contact your personal physician following an emergency department visit to inform them of the circumstance of the visit and for follow-up with them and/or the need for any referrals to a consulting specialist. The emergency department will also refer you to a specialist when appropriate. This referral assures that you have the opportunity for follow-up care with a specialist. All of these measure are taken in an effort to provide you with optimal care, which includes your follow-up. Under all circumstances we always encourage you to contact your private physician who remains a resource for coordinating your care. When calling for follow-up care, please make the office aware that this follow-up is from your recent emergency room visit. If for any reason you are refused follow-up, please contact the [facility] Emergency Department at and asked to speak to the emergency department charge nurse. Sepsis Event Note (ED) - Evaluation Sepsis Screening Result: No Definite Risk - Focused Exam Vital Signs: Vital Signs Temp Pulse Resp BP Pulse Ox 06/21/20 05:10 36.1 C 84 18 112/80 96 06/21/20 02:30 70 18 107/70 95 06/21/20 01:15 35.8 C L 78 18 116/78 97
[2020-06-21 05:22] VITALS: BP 112/80; PULSE 84
== END 2020-06-21 05:15 ==
LOC: MW.ED 01:11
DX: Z43.1 Encounter for attention to gastrostomy (principal); I10 Essential (primary) hypertension; J44.9 Chronic obstructive pulmonary disease, unspecified; K21.9 Gastro-esophageal reflux disease without esophagitis; Z79.82 Long term (current) use of aspirin; Z79.899 Other long term (current) drug therapy; Z86.73 Personal history of transient ischemic attack (TIA), and cerebral infarction without residual deficits
CPT/HCPCS: 43762; 49465; 51702; 99283; Q9967; 75984; 75984-26; 93010

== ENCOUNTER 2020-09-14 22:25 | Inpatient (IN) | payer MEDICARE, MEDICAID ==
[2020-09-14] MEDS ORDERED: Sodium Chloride 0.9% 2.5 ML Syringe FLUSH PRN (22:30)
[2020-09-14] MEDS ORDERED: Sodium Chloride 0.9% 10 ML Syringe FLUSH PRN (22:30)
[2020-09-14] MEDS ORDERED: Pantoprazole 40 MG in Sodium Chloride 0.9% 10 ML IV ONE (22:31)
[2020-09-14] MEDS ORDERED: Sodium Chloride 0.9% 1,000 ML IV ONE (22:34)
--- NOTE | 2020-09-14 22:35 | EDM.PDOC ---
ED HPI GENERAL MEDICAL PROBLEM - General Chief Complaint: Gastrointestinal Problem Stated Complaint: POSSIBLE LOWER GI BLEED Time Seen by Provider: 09/14/20 22:30 - History of Present Illness INITIAL COMMENTS - FREE TEXT/NARRATIVE: History of present illness: [] 40-year-old male's care home and platelet dependent. He is listed as a full code. He was brought by EMS because of bleeding in the stool. His blood pressure was 86 when they picked him up at 70 on arrival but he is responded well to fluids. 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 He is not on a blood thinner. He has esophageal reflux with no history of esophagitis or significant GI bleed in the past. He is nonverbal. Review of systems: As per history of present illness and below otherwise all systems reviewed and negative. Past medical history: As per history of present illness and as reviewed below otherwise noncontributory. Surgical history: As per history of present illness and as reviewed below otherwise noncontributory. Social history: No reported history of drug or alcohol abuse. Family history: As per history of present illness and as reviewed below otherwise noncontributory. Physical exam: Constitutional - well developed, well-nourished and in no acute distress HEENT - normocephalic, no evidence of trauma - external nose and mouth normal - no mass in neck and no JVD - mucosae moist lips extremely pale. EYES - full EOM, PERRL, no icterus - no evidence of inflammation, injection, or drainage Respiratory - no respiratory distress, equal bilateral expansion, lungs clear to auscultation and no abnormal lung sounds Cardiovascular - Regular Rhythm with S1 and S2 appreciated and no murmur, gallop or rub. GI - abdomen soft without distension or organomegaly - normal bowel sounds - no guard or rebound. Perianal soft tissues are without evidence of trauma or hemorrhoidal tissue. There is soilage of the perianal area with liquid dark black melena. It is heme positive. Musculoskeletal no gross deformity of long bones or joints - no tenderness, swelling or edema Neurologic - Alert and oriented times four - CN II-XII grossly intact - motor s ensory and coordination symmetrically normal Psychiatric - appropriate mood and affect with normal thought content Hematologic - No petechiae or purpura - mucosa appropriate color and sclera not pale - normal nail bed color and refill Integument - no rash or evidence of trauma - normal turgor Diagnostics: [] Therapeutics: [] Impression: [] Plan: [] Definitive disposition and diagnosis as appropriate pending reevaluation and review of above. - Related Data Allergies Allergy/AdvReac Type Severity Reaction Status Date / Time No Known Allergies Allergy Verified 09/14/20 23:18 Home Meds: Home Meds Acetaminophen [Tylenol Solution 160 MG/5 ML] 1,000 mg PEGTUBE Q6HR PRN 09/16/16 [History] Aspirin [Adult Low Dose Aspirin EC] 81 mg PEGTUBE DAILY 09/16/16 [History] Sennosides/Docusate Sodium [Sennosides-Docusate Sodium] 1 tab PEGTUBE BID 09/16/16 [History] atorvaSTATin Calcium [Atorvastatin Calcium] 10 mg PEGTUBE BEDTIME 09/16/16 [History] Losartan Potassium 25 mg PEGTUBE DAILY 04/17/17 [History] Cyclobenzaprine [Flexeril] 5 mg PEGTUBE TID 09/14/20 [History] Ergocalciferol (Vitamin D2) [Calcidol] 0.5 ml PEGTUBE DAILY 09/14/20 [History] Famotidine 40 mg PEGTUBE BEDTIME 09/14/20 [History] Fluticasone Propionate [Flonase] 1 spray NASBOTH DAILY 09/14/20 [History] Mirtazapine 15 mg PEGTUBE BEDTIME 09/14/20 [History] Pregabalin [Lyrica] 50 mg PEGTUBE TID 09/14/20 [History] Zolpidem [Ambien] 10 mg PEGTUBE BEDTIME 09/14/20 [History] polyethylene glycoL 3350 [MiraLAX] 17 gm PEGTUBE DAILY 09/14/20 [History] Past Medical History HEENT History: Reports: None Cardiovascular History: Reports: Hypertension Respiratory History: Reports: COPD, Other (See Below) Other Respiratory History: pulmonary edema Gastrointestinal History: Reports: GERD Genitourinary History: Reports: None Musculoskeletal History: Reports: Other (See Below) Other Musculoskeletal History: hemiplegia. spondylolysis Neurological History: Reports: CVA, Other (See Below) Other Neuro History: hemiplegia Psychiatric History: Reports: Depression Endocrine/Metabolic History: Reports: None Insulin Pump Model and Distribution Superintendent: None Hematologic History: Reports: None Immunologic History: Reports: None Oncologic (Cancer) History: Reports: None Dermatologic History: Reports: None - Infectious Disease History Infectious Disease History: Reports: None - Past Surgical History GI Surgical History: Reports: Other (See Below) Other GI Surgeries/Procedures: PEG tube for feeding Male Surgical History: Reports: Other (See Below) Other Male Surgeries/Procedures: Cystostomy Musculoskeletal Surgical History: Reports: Other (See Below) Other Musculoskeletal Surgeries/Procedures:: arthropathy Social & Family History - Family History Family Medical History: No Pertinent Family History - Caffeine Use Caffeine Use: Reports: Coffee ED ROS GENERAL - Review of Systems Review Of Systems: Comprehensive ROS is negative, except as noted in HPI. ED EXAM, GENERAL - Physical Exam Exam: See Below Free Text/Narrative:: My physical exam is in the HPI #1 Interpretation EKG Interpretation Comments: KG done at 2243 hrs. sinus rhythm heart rate 95 NV 179 Adrian IX normal QRS normal ST and T compared to 11/18/2016 no change impression no acute injury Course - Vital Signs Text/Narrative:: 2242 Spoke with Edita (mother) and she said he had a stroke 4 or so years ago and speaks minimally since, has trouble handling secretions, can't eat, and can hardly use right side of his body. He is a full code. 0105 patient's hemoglobin dropped from 13-11 with 2 L of fluid but he stabilized and his blood pressure and pulse became stable. Discussed with Dr. Park who agreed to see the patient in consult and do endoscopy. Discussed with Dr. Alegria who agreed to admit the patient. Requested an observation bed on telemetry and PPI administration. Last Recorded V/S: Last Vital Signs Temp 36.2 C 09/14/20 22:30 Pulse 87 09/15/20 01:02 Resp 15 09/14/20 22:30 BP 114/69 09/15/20 00:07 Pulse Ox 100 09/15/20 01:02 - Orders/Labs/Meds Orders: Active Orders 24 hr Category Date Time Status Admission Status [Patient Status] [ADT] Stat ADT 09/15/20 01:03 Ordered EKG Documentation Completion [RC] AM Care 09/14/20 22:30 Active Sodium Chloride 0.9% [Saline Flush] Med 09/14/20 22:30 Active 10 ml FLUSH ASDIRECTED PRN Sodium Chloride 0.9% [Saline Flush] Med 09/14/20 22:30 Active 2.5 ml FLUSH ASDIRECTED PRN Saline Lock Insert [OM.PC] Stat Oth 09/14/20 22:30 Ordered Medication Orders Sodium Chloride (Sodium Chloride 0.9% 10 Ml Syringe) 10 ml FLUSH ASDIRECTED PRN PRN Reason: Keep Vein Open Last Admin: 09/14/20 22:40 Dose: 10 ml Documented by: LINDSEY Sodium Chloride (Sodium Chloride 0.9% 2.5 Ml Syringe) 2.5 ml FLUSH ASDIRECTED PRN PRN Reason: Keep Vein Open Last Admin: 09/14/20 22:40 Dose: 2.5 ml Documented by: LINDSEY Labs: Laboratory Tests 09/14/20 09/14/20 09/14/20 Range/Units 22:37 22:37 22:37 WBC 12.14 H (4.0-11.0) K/uL RBC 4.52 (4.50-5.90) M/uL Hgb 13.6 (13.0-17.0) g/dL Hct 41.9 (38.0-50.0) % MCV 92.7 (80.0-98.0) fL MCH 30.1 (27.0-32.0) pg MCHC 32.5 (31.0-37.0) g/dL RDW Std Deviation 46.0 (28.0-62.0) fl RDW Coeff of Claudette 14 (11.0-15.0) % Plt Count 248 (150-400) K/uL MPV 12.70 H (7.40-12.00) fL Add Manual Diff YES Neutrophils % (Manual) 78 (48.0-80.0) % Band Neutrophils % 3 % Lymphocytes % (Manual) 14 L (16.0-40.0) % Monocytes % (Manual) 5 (0.0-15.0) % Nucleated RBC % 0.0 /100WBC Absolute Seg Neuts 9.5 H (1.4-5.7) Band Neutrophils # 0.4 Lymphocytes # (Manual) 1.7 (0.6-2.4) Monocytes # (Manual) 0.6 (0.0-0.8) Nucleated RBCs # 0 K/uL INR 1.07 APTT 20.5 (18.6-31.3) SEC Lactate 4.0 H* (0.20-2.00) mmol/L Sodium (136-148) mmol/L Potassium (3.5-5.1) mmol/L Chloride (98-107) mmol/L Carbon Dioxide (21.0-32.0) mmol/L BUN (7.0-18.0) mg/dL Creatinine (0.8-1.3) mg/dL Est Cr Clr Drug Dosing Estimated GFR (MDRD) ml/min Glucose (74-106) mg/dL Calcium (8.5-10.1) mg/dL Total Bilirubin (0.2-1.0) mg/dL AST (15-37) IU/L ALT (14-63) IU/L Alkaline Phosphatase (46-116) U/L Total Protein (6.4-8.2) g/dL Albumin (3.4-5.0) g/dL Globulin (2.6-4.0) g/dL Albumin/Globulin Ratio (0.9-1.6) Lipase (73-393) U/L SARS-CoV-2 RNA (MARCIAL) (NEGATIVE) Blood Type Antibody Screen 09/14/20 09/14/20 09/14/20 Range/Units 22:37 23:23 23:47 WBC (4.0-11.0) K/uL RBC (4.50-5.90) M/uL Hgb (13.0-17.0) g/dL Hct (38.0-50.0) % MCV (80.0-98.0) fL MCH (27.0-32.0) pg MCHC (31.0-37.0) g/dL RDW Std Deviation (28.0-62.0) fl RDW Coeff of Claudette (11.0-15.0) % Plt Count (150-400) K/uL MPV (7.40-12.00) fL Add Manual Diff Neutrophils % (Manual) (48.0-80.0) % Band Neutrophils % % Lymphocytes % (Manual) (16.0-40.0) % Monocytes % (Manual) (0.0-15.0) % Nucleated RBC % /100WBC Absolute Seg Neuts (1.4-5.7) Band Neutrophils # Lymphocytes # (Manual) (0.6-2.4) Monocytes # (Manual) (0.0-0.8) Nucleated RBCs # K/uL INR APTT (18.6-31.3) SEC Lactate (0.20-2.00) mmol/L Sodium 145 (136-148) mmol/L Potassium 3.9 (3.5-5.1) mmol/L Chloride 107 (98-107) mmol/L Carbon Dioxide 30.2 (21.0-32.0) mmol/L BUN 30 H (7.0-18.0) mg/dL Creatinine 1.2 (0.8-1.3) mg/dL Est Cr Clr Drug Dosing TNP Estimated GFR (MDRD) > 60.0 ml/min Glucose 200 H (74-106) mg/dL Calcium 8.7 (8.5-10.1) mg/dL Total Bilirubin 0.3 (0.2-1.0) mg/dL AST 18 (15-37) IU/L ALT 36 (14-63) IU/L Alkaline Phosphatase 133 H (46-116) U/L Total Protein 7.3 (6.4-8.2) g/dL Albumin 3.2 L (3.4-5.0) g/dL Globulin 4.1 H (2.6-4.0) g/dL Albumin/Globulin Ratio 0.8 L (0.9-1.6) Lipase 39 L (73-393) U/L SARS-CoV-2 RNA (MARCIAL) NEGATIVE (NEGATIVE) Blood Type O POSITIVE Antibody Screen NEGATIVE 09/14/20 09/14/20 Range/Units 23:55 23:55 WBC (4.0-11.0) K/uL RBC (4.50-5.90) M/uL Hgb 11.0 L (13.0-17.0) g/dL Hct 33.6 L (38.0-50.0) % MCV (80.0-98.0) fL MCH (27.0-32.0) pg MCHC (31.0-37.0) g/dL RDW Std Deviation (28.0-62.0) fl RDW Coeff of Claudette (11.0-15.0) % Plt Count (150-400) K/uL MPV (7.40-12.00) fL Add Manual Diff Neutrophils % (Manual) (48.0-80.0) % Band Neutrophils % % Lymphocytes % (Manual) (16.0-40.0) % Monocytes % (Manual) (0.0-15.0) % Nucleated RBC % /100WBC Absolute Seg Neuts (1.4-5.7) Band Neutrophils # Lymphocytes # (Manual) (0.6-2.4) Monocytes # (Manual) (0.0-0.8) Nucleated RBCs # K/uL INR APTT (18.6-31.3) SEC Lactate 3.4 H* (0.20-2.00) mmol/L Sodium (136-148) mmol/L Potassium (3.5-5.1) mmol/L Chloride (98-107) mmol/L Carbon Dioxide (21.0-32.0) mmol/L BUN (7.0-18.0) mg/dL Creatinine (0.8-1.3) mg/dL Est Cr Clr Drug Dosing Estimated GFR (MDRD) ml/min Glucose (74-106) mg/dL Calcium (8.5-10.1) mg/dL Total Bilirubin (0.2-1.0) mg/dL AST (15-37) IU/L ALT (14-63) IU/L Alkaline Phosphatase (46-116) U/L Total Protein (6.4-8.2) g/dL Albumin (3.4-5.0) g/dL Globulin (2.6-4.0) g/dL Albumin/Globulin Ratio (0.9-1.6) Lipase (73-393) U/L SARS-CoV-2 RNA (MARCIAL) (NEGATIVE) Blood Type Antibody Screen Meds: Medications Generic Name Dose Route Start Last Admin Trade Name Freq PRN Reason Stop Dose Admin Sodium Chloride 10 ml 09/14/20 22:30 09/14/20 22:40 Sodium Chloride 0.9% 10 Ml Syringe FLUSH 10 ml ASDIRECTED PRN Administration Keep Vein Open Sodium Chloride 2.5 ml 09/14/20 22:30 09/14/20 22:40 Sodium Chloride 0.9% 2.5 Ml Syringe FLUSH 2.5 ml ASDIRECTED PRN Administration Keep Vein Open Discontinued Medications Generic Name Dose Route Start Last Admin Trade Name Freq PRN Reason Stop Dose Admin Pantoprazole Sodium 40 mg/ 10 mls @ 300 mls/hr 09/14/20 22:31 09/14/20 22:40 Sodium Chloride IV 09/14/20 22:32 300 mls/hr NOW ONE Administration Sodium Chloride 1,000 mls @ 1,000 mls/hr 09/14/20 22:34 09/14/20 22:40 Normal Saline IV 09/14/20 23:33 1,000 mls/hr .Bolus ONE Administration Departure - Departure Time of Disposition: 01:06 Disposition: Refer to Observation Condition: Good Clinical Impression: GI bleed - Discharge Information Referrals: Carlton Jha MD [Primary Care Provider] - Forms: ED Department Discharge Sepsis Event Note (ED) - Focused Exam Vital Signs: Vital Signs Temp Pulse Resp BP Pulse Ox 09/15/20 01:02 87 100 09/15/20 00:37 96 100 09/15/20 00:07 71 114/69 100 09/14/20 23:37 95 106/63 98 09/14/20 23:07 102 H 105/67 100 09/14/20 22:38 95 101/67 100 09/14/20 22:30 36.2 C 103 H 15 96/67 100 - My Orders Last 24 Hours: My Active Orders 09/14/20 22:30 EKG Documentation Completion [RC] AM Sodium Chloride 0.9% [Saline Flush] 10 ml FLUSH ASDIRECTED PRN Sodium Chloride 0.9% [Saline Flush] 2.5 ml FLUSH ASDIRECTED PRN Saline Lock Insert [OM.PC] Stat 09/15/20 01:03 Admission Status [Patient Status] [ADT] Stat - Assessment/Plan Last 24 Hours: My Active Orders 09/14/20 22:30 EKG Documentation Completion [RC] AM Sodium Chloride 0.9% [Saline Flush] 10 ml FLUSH ASDIRECTED PRN Sodium Chloride 0.9% [Saline Flush] 2.5 ml FLUSH ASDIRECTED PRN Saline Lock Insert [OM.PC] Stat 09/15/20 01:03 Admission Status [Patient Status] [ADT] Stat
[2020-09-14 23:15] LABS: BLOOD UREA NITROGEN,BUN 30 mg/dL (7.0-18.0); CARBON DIOXIDE,CO2 30.2 mmol/L (21.0-32.0); CHLORIDE,CL 107 mmol/L (98-107); GLUCOSE RANDOM 200 mg/dL (74-106); LIPASE 39 U/L (73-393); POTASSIUM,K 3.9 mmol/L (3.5-5.1); SODIUM,NA 145 mmol/L (136-148)
--- NOTE | 2020-09-14 23:15 | CR ---
Indication: GI bleed Technique: Chest 1 view Comparison: None Findings/Impression: Cardiovascular and mediastinum: Heart size and vasculature are normal in caliber and appearance. Mediastinum is within normal limits. Lungs and pleural space: Lungs are clear. No sign of infiltrate or mass. No sign of pleural effusion. No pneumothorax. Bones and soft tissues: No significant findings. Dictated by Sushma Lorenzo MD @ 09/14/2020 11:14:[address] Sushma Lorenzo @ Sep 14 2020 11:14PM
[2020-09-15] MEDS ORDERED: Pantoprazole 80 MG in Sodium Chloride 0.9% 100 ML IV ONE ×2 (01:14→01:45)
[2020-09-15] MEDS ORDERED: Pantoprazole 40 MG Vial ONE (01:22)
[2020-09-15] MEDS ORDERED: Pantoprazole 40 MG in Sodium Chloride 0.9% 10 ML IVPUSH ONE (01:31)
[2020-09-15] MEDS ORDERED: LORazepam 2 MG/ML SDV IVPUSH PRN (03:43)
[2020-09-15] MEDS ORDERED: Ondansetron 4 MG/2 ML SDV IVPUSH PRN (03:48)
[2020-09-15] MEDS ORDERED: Acetaminophen 325 MG/10.15 ML ML PEGTUBE PRN ×2 (03:56→04:44)
[2020-09-15] MEDS: Lactated Ringers 1,000 ML IV SCH ×2 (04:30→12:51)
[2020-09-15] MEDS ORDERED: Albuterol/Ipratropium 3.0-0.5 MG/3 ML Neb Soln NEB PRN (04:45)
[2020-09-15] MEDS ORDERED: Albuterol/Ipratropium 3.0-0.5 MG/3 ML Neb Soln NEB SCH (06:00)
[2020-09-15 06:28] LABS: BLOOD UREA NITROGEN,BUN 27 mg/dL (7.0-18.0); CARBON DIOXIDE,CO2 29.1 mmol/L (21.0-32.0); CHLORIDE,CL 111 mmol/L (98-107); GLUCOSE RANDOM 89 mg/dL (74-106); POTASSIUM,K 4.5 mmol/L (3.5-5.1); SODIUM,NA 145 mmol/L (136-148)
[2020-09-15] MEDS ORDERED: Lactated Ringers 1,000 ML IV ONE (07:59)
--- NOTE | 2020-09-15 08:48 | PCM.HP.2 ---
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 Patient was fiund to be heme postive, his BP was low and he received aggressive IV fluid hydration, b was stable at 13.6, Surgery recommended admitting to medicine service with possibility of scope, Patient was admitted for further management. Patient is not on nay blood thinner, doesnt use NSAIDs, no prior h/o colonoscopy or endoscopy. Patient and family unsure what caused his stroke,stroke was managed in [place] per family. Patient also c/o sub-acute vague left leg pain from hip to toes, which is dull in nature, 5/10 , no exacerbating or relieving factor. - Related Data Allergies/Adverse Reactions: Allergies Allergy/AdvReac Type Severity Reaction Status Date / Time No Known Allergies Allergy Verified 09/15/20 03:43 Home Medications: Home Meds Acetaminophen [Tylenol Solution 160 MG/5 ML] 1,000 mg PEGTUBE Q6HR PRN 09/16/16 [History] Aspirin [Adult Low Dose Aspirin EC] 81 mg PEGTUBE DAILY 09/16/16 [History] Sennosides/Docusate Sodium [Sennosides-Docusate Sodium] 1 tab PEGTUBE BID 09/16/16 [History] atorvaSTATin Calcium [Atorvastatin Calcium] 10 mg PEGTUBE BEDTIME 09/16/16 [History] Losartan Potassium 25 mg PEGTUBE DAILY 04/17/17 [History] Cyclobenzaprine [Flexeril] 5 mg PEGTUBE TID 09/14/20 [History] Ergocalciferol (Vitamin D2) [Calcidol] 0.5 ml PEGTUBE DAILY 09/14/20 [History] Famotidine 40 mg PEGTUBE BEDTIME 09/14/20 [History] Fluticasone Propionate [Flonase] 1 spray NASBOTH DAILY 09/14/20 [History] Mirtazapine 15 mg PEGTUBE BEDTIME 09/14/20 [History] Pregabalin [Lyrica] 50 mg PEGTUBE TID 09/14/20 [History] Zolpidem [Ambien] 10 mg PEGTUBE BEDTIME 09/14/20 [History] polyethylene glycoL 3350 [MiraLAX] 17 gm PEGTUBE DAILY 09/14/20 [History] Carboxymethylcellulose Sodium [Refresh Tears] 15 ml QID 09/15/20 [History] Magnesium Hydroxide [Milk of Magnesia] 30 ml PO DAILY PRN 09/15/20 [History] Menthol [Biofreeze] 118 ml TP BID 09/15/20 [History] Psyllium Husk (With Sugar) [Fiber Powder] 368 gm PO DAILY 09/15/20 [History] Past Medical History HEENT History: Reports: None Cardiovascular History: Reports: High Cholesterol, Hypertension Respiratory History: Reports: COPD, Other (See Below) Other Respiratory History: pulmonary edema Gastrointestinal History: Reports: GERD Genitourinary History: Reports: None Musculoskeletal History: Reports: Other (See Below) Other Musculoskeletal History: hemiplegia. spondylolysis Neurological History: Reports: CVA, Other (See Below) Other Neuro History: hemiplegia Psychiatric History: Reports: Anxiety, Depression Endocrine/Metabolic History: Reports: None Insulin Pump Model and Physicist [place]: None Hematologic History: Reports: None Immunologic History: Reports: None Oncologic (Cancer) History: Reports: None Dermatologic History: Reports: None - Infectious Disease History Infectious Disease History: Reports: None - Past Surgical History GI Surgical History: Reports: Other (See Below) Other GI Surgeries/Procedures: PEG tube for feeding Male Surgical History: Reports: Other (See Below) Other Male Surgeries/Procedures: Cystostomy Musculoskeletal Surgical History: Reports: Other (See Below) Other Musculoskeletal Surgeries/Procedures:: arthropathy Social & Family History - Family History Family Medical History: No Pertinent Family History - Tobacco Use Tobacco Use Status *Q: Former Tobacco User Used Tobacco, but Quit: Yes Month/Year Tobacco Last Used: unknown - Caffeine Use Caffeine Use: Reports: Coffee, Tea - Recreational Drug Use Recreational Drug Use: No H&P Review of Systems - Review of Systems: Review Of Systems: See Below General: Denies: Fever, Chills, Malaise Pulmonary: Denies: Shortness of Breath Cardiovascular: Denies: Palpitations, Dyspnea on Exertion Gastrointestinal: Reports: Difficulty Swallowing, Hematochezia, Melena. Denies: Abdominal Pain, Anorexia, Diarrhea, Nausea, Stool Incontinence, Vomiting Musculoskeletal: Reports: Leg Pain. Denies: Shoulder Pain, Arm Pain, Back Pain Skin: Denies: Jaundice, Mottled Exam - Exam Exam: See Below - Vital Signs Vital Signs: Last Vital Signs Temp 36.7 C 09/15/20 08:37 Pulse 83 09/15/20 08:37 Resp 18 09/15/20 08:37 BP 91/57 L 09/15/20 08:37 Pulse Ox 99 09/15/20 08:37 Weight: 72.575 kg - Exam Quality Assessment: No: Supplemental Oxygen General: Alert, Oriented, Cooperative Neck: Supple Lungs: Clear to Auscultation, Normal Respiratory Effort Cardiovascular: Regular Rate, Regular Rhythm GI/Abdominal Exam: Normal Bowel Sounds, Soft, Other (G tube in place) - Patient Data Lab Results Last 24 hrs: Laboratory Results - last 24 hr 09/14/20 09/14/20 09/14/20 Range/Units 22:37 22:37 22:37 WBC 12.14 H (4.0-11.0) K/uL RBC 4.52 (4.50-5.90) M/uL Hgb 13.6 (13.0-17.0) g/dL Hct 41.9 (38.0-50.0) % MCV 92.7 (80.0-98.0) fL MCH 30.1 (27.0-32.0) pg MCHC 32.5 (31.0-37.0) g/dL RDW Std Deviation 46.0 (28.0-62.0) fl RDW Coeff of Claudette 14 (11.0-15.0) % Plt Count 248 (150-400) K/uL MPV 12.70 H (7.40-12.00) fL Neut % (Auto) (48.0-80.0) % Lymph % (Auto) (16.0-40.0) % Glasscock % (Auto) (0.0-15.0) % Eos % (Auto) (0.0-7.0) % Baso % (Auto) (0.0-1.5) % Neut # (Auto) (1.4-5.7) K/uL Lymph # (Auto) (0.6-2.4) K/uL Glasscock # (Auto) (0.0-0.8) K/uL Eos # (Auto) (0.0-0.7) K/uL Baso # (Auto) (0.0-0.1) K/uL Add Manual Diff YES Neutrophils % (Manual) 78 (48.0-80.0) % Band Neutrophils % 3 % Lymphocytes % (Manual) 14 L (16.0-40.0) % Monocytes % (Manual) 5 (0.0-15.0) % Nucleated RBC % 0.0 /100WBC Absolute Seg Neuts 9.5 H (1.4-5.7) Band Neutrophils # 0.4 Lymphocytes # (Manual) 1.7 (0.6-2.4) Monocytes # (Manual) 0.6 (0.0-0.8) Nucleated RBCs # 0 K/uL INR 1.07 APTT 20.5 (18.6-31.3) SEC Lactate 4.0 H* (0.20-2.00) mmol/L Sodium (136-148) mmol/L Potassium (3.5-5.1) mmol/L Chloride (98-107) mmol/L Carbon Dioxide (21.0-32.0) mmol/L BUN (7.0-18.0) mg/dL Creatinine (0.8-1.3) mg/dL Est Cr Clr Drug Dosing Estimated GFR (MDRD) ml/min Glucose (74-106) mg/dL Calcium (8.5-10.1) mg/dL Total Bilirubin (0.2-1.0) mg/dL AST (15-37) IU/L ALT (14-63) IU/L Alkaline Phosphatase (46-116) U/L Total Protein (6.4-8.2) g/dL Albumin (3.4-5.0) g/dL Globulin (2.6-4.0) g/dL Albumin/Globulin Ratio (0.9-1.6) Lipase (73-393) U/L SARS-CoV-2 RNA (MARCIAL) (NEGATIVE) Blood Type Antibody Screen 09/14/20 09/14/20 09/14/20 Range/Units 22:37 23:23 23:47 WBC (4.0-11.0) K/uL RBC (4.50-5.90) M/uL Hgb (13.0-17.0) g/dL Hct (38.0-50.0) % MCV (80.0-98.0) fL MCH (27.0-32.0) pg MCHC (31.0-37.0) g/dL RDW Std Deviation (28.0-62.0) fl RDW Coeff of Claudette (11.0-15.0) % Plt Count (150-400) K/uL MPV (7.40-12.00) fL Neut % (Auto) (48.0-80.0) % Lymph % (Auto) (16.0-40.0) % Glasscock % (Auto) (0.0-15.0) % Eos % (Auto) (0.0-7.0) % Baso % (Auto) (0.0-1.5) % Neut # (Auto) (1.4-5.7) K/uL Lymph # (Auto) (0.6-2.4) K/uL Glasscock # (Auto) (0.0-0.8) K/uL Eos # (Auto) (0.0-0.7) K/uL Baso # (Auto) (0.0-0.1) K/uL Add Manual Diff Neutrophils % (Manual) (48.0-80.0) % Band Neutrophils % % Lymphocytes % (Manual) (16.0-40.0) % Monocytes % (Manual) (0.0-15.0) % Nucleated RBC % /100WBC Absolute Seg Neuts (1.4-5.7) Band Neutrophils # Lymphocytes # (Manual) (0.6-2.4) Monocytes # (Manual) (0.0-0.8) Nucleated RBCs # K/uL INR APTT (18.6-31.3) SEC Lactate (0.20-2.00) mmol/L Sodium 145 (136-148) mmol/L Potassium 3.9 (3.5-5.1) mmol/L Chloride 107 (98-107) mmol/L Carbon Dioxide 30.2 (21.0-32.0) mmol/L BUN 30 H (7.0-18.0) mg/dL Creatinine 1.2 (0.8-1.3) mg/dL Est Cr Clr Drug Dosing TNP Estimated GFR (MDRD) > 60.0 ml/min Glucose 200 H (74-106) mg/dL Calcium 8.7 (8.5-10.1) mg/dL Total Bilirubin 0.3 (0.2-1.0) mg/dL AST 18 (15-37) IU/L ALT 36 (14-63) IU/L Alkaline Phosphatase 133 H (46-116) U/L Total Protein 7.3 (6.4-8.2) g/dL Albumin 3.2 L (3.4-5.0) g/dL Globulin 4.1 H (2.6-4.0) g/dL Albumin/Globulin Ratio 0.8 L (0.9-1.6) Lipase 39 L (73-393) U/L SARS-CoV-2 RNA (MARCIAL) NEGATIVE (NEGATIVE) Blood Type O POSITIVE Antibody Screen NEGATIVE 09/14/20 09/14/20 09/15/20 Range/Units 23:55 23:55 05:55 WBC (4.0-11.0) K/uL RBC (4.50-5.90) M/uL Hgb 11.0 L (13.0-17.0) g/dL Hct 33.6 L (38.0-50.0) % MCV (80.0-98.0) fL MCH (27.0-32.0) pg MCHC (31.0-37.0) g/dL RDW Std Deviation (28.0-62.0) fl RDW Coeff of Claudette (11.0-15.0) % Plt Count (150-400) K/uL MPV (7.40-12.00) fL Neut % (Auto) (48.0-80.0) % Lymph % (Auto) (16.0-40.0) % [place]cock % (Auto) (0.0-15.0) % Eos % (Auto) (0.0-7.0) % Baso % (Auto) (0.0-1.5) % Neut # (Auto) (1.4-5.7) K/uL Lymph # (Auto) (0.6-2.4) K/uL Glasscock # (Auto) (0.0-0.8) K/uL Eos # (Auto) (0.0-0.7) K/uL Baso # (Auto) (0.0-0.1) K/uL Add Manual Diff Neutrophils % (Manual) (48.0-80.0) % Band Neutrophils % % Lymphocytes % (Manual) (16.0-40.0) % Monocytes % (Manual) (0.0-15.0) % Nucleated RBC % /100WBC Absolute Seg Neuts (1.4-5.7) Band Neutrophils # Lymphocytes # (Manual) (0.6-2.4) Monocytes # (Manual) (0.0-0.8) Nucleated RBCs # K/uL INR APTT (18.6-31.3) SEC Lactate 3.4 H* 0.9 (0.20-2.00) mmol/L Sodium (136-148) mmol/L Potassium (3.5-5.1) mmol/L Chloride (98-107) mmol/L Carbon Dioxide (21.0-32.0) mmol/L BUN (7.0-18.0) mg/dL Creatinine (0.8-1.3) mg/dL Est Cr Clr Drug Dosing Estimated GFR (MDRD) ml/min Glucose (74-106) mg/dL Calcium (8.5-10.1) mg/dL Total Bilirubin (0.2-1.0) mg/dL AST (15-37) IU/L ALT (14-63) IU/L Alkaline Phosphatase (46-116) U/L Total Protein (6.4-8.2) g/dL Albumin (3.4-5.0) g/dL Globulin (2.6-4.0) g/dL Albumin/Globulin Ratio (0.9-1.6) Lipase (73-393) U/L SARS-CoV-2 RNA (MARCIAL) (NEGATIVE) Blood Type Antibody Screen 09/15/20 09/15/20 Range/Units 05:55 05:55 WBC 7.30 (4.0-11.0) K/uL RBC 3.39 L (4.50-5.90) M/uL Hgb 10.2 L (13.0-17.0) g/dL Hct 30.8 L (38.0-50.0) % MCV 90.9 (80.0-98.0) fL MCH 30.1 (27.0-32.0) pg MCHC 33.1 (31.0-37.0) g/dL RDW Std Deviation 44.5 (28.0-62.0) fl RDW Coeff of Claudette 13 (11.0-15.0) % Plt Count 193 (150-400) K/uL MPV 11.80 (7.40-12.00) fL Neut % (Auto) 66.0 (48.0-80.0) % Lymph % (Auto) 21.4 (16.0-40.0) % Glasscock % (Auto) 11.9 (0.0-15.0) % Eos % (Auto) 0.4 (0.0-7.0) % Baso % (Auto) 0.3 (0.0-1.5) % Neut # (Auto) 4.8 (1.4-5.7) K/uL Lymph # (Auto) 1.6 (0.6-2.4) K/uL [place]cock # (Auto) 0.9 H (0.0-0.8) K/uL Eos # (Auto) 0.0 (0.0-0.7) K/uL Baso # (Auto) 0.0 (0.0-0.1) K/uL Add Manual Diff Neutrophils % (Manual) (48.0-80.0) % Band Neutrophils % % Lymphocytes % (Manual) (16.0-40.0) % Monocytes % (Manual) (0.0-15.0) % Nucleated RBC % 0.0 /100WBC Absolute Seg Neuts (1.4-5.7) Band Neutrophils # Lymphocytes # (Manual) (0.6-2.4) Monocytes # (Manual) (0.0-0.8) Nucleated RBCs # 0 K/uL INR APTT (18.6-31.3) SEC Lactate (0.20-2.00) mmol/L Sodium 145 (136-148) mmol/L Potassium 4.5 (3.5-5.1) mmol/L Chloride 111 H (98-107) mmol/L Carbon Dioxide 29.1 (21.0-32.0) mmol/L BUN 27 H (7.0-18.0) mg/dL Creatinine 0.8 (0.8-1.3) mg/dL Est Cr Clr Drug Dosing 121.52 Estimated GFR (MDRD) > 60.0 ml/min Glucose 89 (74-106) mg/dL Calcium 8.1 L (8.5-10.1) mg/dL Total Bilirubin 0.2 (0.2-1.0) mg/dL AST 15 (15-37) IU/L ALT 29 (14-63) IU/L Alkaline Phosphatase 100 (46-116) U/L Total Protein 5.5 L (6.4-8.2) g/dL Albumin 2.3 L (3.4-5.0) g/dL Globulin 3.2 (2.6-4.0) g/dL Albumin/Globulin Ratio 0.7 L (0.9-1.6) Lipase (73-393) U/L SARS-CoV-2 RNA (MARCIAL) (NEGATIVE) Blood Type Antibody Screen Result Diagrams: 09/15/20 12:00 09/15/20 05:55 Sepsis Event Note - Evaluation Sepsis Screening Result: No Definite Risk - Focused Exam Vital Signs: Vital Signs Temp Pulse Resp BP Pulse Ox 09/15/20 08:37 36.7 C 83 18 91/57 L 99 09/15/20 06:00 36.4 C 80 16 87/51 L 99 09/15/20 02:20 36.4 C 85 16 94/58 L 98 09/15/20 01:02 87 100 09/15/20 00:37 96 100 09/15/20 00:07 71 114/69 100 09/14/20 23:37 95 106/63 98 09/14/20 23:07 102 H 105/67 100 09/14/20 22:38 95 101/67 100 09/14/20 22:30 36.2 C 103 H 15 96/67 100 - Problem List (1) GI bleed SNOMED Code(s): 72015834 ICD Code: K92.2 - GASTROINTESTINAL HEMORRHAGE, UNSPECIFIED Status: Acute Current Visit: Yes (2) CVA, Cerebrovascular accident SNOMED Code(s): 605042241 ICD Code: I63.9 - CEREBRAL INFARCTION, UNSPECIFIED Status: Acute Current Visit: No Problem List Initiated/Reviewed/Updated: Yes Orders Last 24hrs: Active Orders 24 hr Category Date Time Status Admission Status [Patient Status] [ADT] Stat ADT 09/15/20 01:03 Active Ambulate [RC] ASDIRECTED Care 09/15/20 03:42 Active Antiembolic Devices [RC] PER UNIT ROUTINE Care 09/15/20 03:41 Active Communication Order [RC] ROUTINE Care 09/15/20 07:59 Active Notify Provider Consults [RC] ASDIRECTED Care 09/15/20 05:13 Active Oxygen Therapy Adult [Oxygen Therapy] [RC] ASDIRECTED Care 09/15/20 03:38 Active RT Aerosol Therapy [RC] ASDIRECTED Care 09/15/20 03:48 Active RT Aerosol Therapy [RC] ASDIRECTED Care 09/15/20 04:47 Active Telemetry Monitoring [Cardiac Monitoring] [RC] Q8H Care 09/15/20 02:00 Active Vital Signs [RC] Q4H Care 09/15/20 03:37 Active Consult to Physician [CONS] Routine Cons 09/15/20 05:12 Active NPO [Nothing Per Oral Diet] [DIET] Diet 09/15/20 Breakfast Active Acetaminophen [Tylenol] Med 09/15/20 04:44 Active 500 mg PEGTUBE Q4H PRN Albuterol/Ipratropium [DuoNeb 3.0-0.5 MG/3 ML] Med 09/15/20 04:45 Active 3 ml NEB Q4HRRT PRN LORazepam [Ativan] Med 09/15/20 03:43 Active 0.5 mg IVPUSH Q6H PRN Lactated Ringers [Ringers, Lactated] 1,000 ml Med 09/15/20 07:59 Active IV .BOLUS Lactated Ringers [Ringers, Lactated] 1,000 ml Med 09/15/20 03:45 Active IV ASDIRECTED Ondansetron [Zofran] Med 09/15/20 03:48 Active 4 mg IVPUSH Q4H PRN Pantoprazole [ProTONIX IV] 80 mg Med 09/15/20 01:45 Active Sodium Chloride 0.9% [Normal Saline] 100 ml IV NOW Sodium Chloride 0.9% [Saline Flush] Med 09/14/20 22:30 Active 10 ml FLUSH ASDIRECTED PRN Sodium Chloride 0.9% [Saline Flush] Med 09/14/20 22:30 Active 2.5 ml FLUSH ASDIRECTED PRN Saline Lock Insert [OM.PC] Stat Oth 09/14/20 22:30 Ordered Sequential Compression Device [OM.PC] Routine Oth 09/15/20 03:41 Ordered Medication Orders Acetaminophen (Acetaminophen 325 Mg/10.15 Ml Ml) 500 mg PEGTUBE Q4H PRN PRN Reason: Pain Albuterol/Ipratropium (Albuterol/Ipratropium 3.0-0.5 Mg/3 Ml Neb Soln) 3 ml NEB Q4HRRT PRN PRN Reason: Shortness of Breath Pantoprazole Sodium 80 mg/ (Sodium Chloride) 100 mls @ 10 mls/hr IV NOW ONE Stop: 09/15/20 11:44 Last Admin: 09/15/20 01:53 Dose: 10 mls/hr Documented by: LINDSEY Lactated Ringer's (Ringers, Lactated) 1,000 mls @ 125 mls/hr IV ASDIRECTED TOBY Last Infusion: 09/15/20 08:36 Dose: 999 mls/hr Documented by: Admin: 09/15/20 04:30 Dose: 125 mls/hr Documented by: SOL Lactated Ringer's (Ringers, Lactated) 1,000 mls @ 999 mls/hr IV .BOLUS ONE Stop: 09/15/20 08:59 Last Admin: 09/15/20 08:37 Dose: 999 mls/hr Documented by: AVANI Lorazepam (Lorazepam 2 Mg/Ml Sdv) 0.5 mg IVPUSH Q6H PRN PRN Reason: Anxiety Ondansetron HCl (Ondansetron 4 Mg/2 Ml Sdv) 4 mg IVPUSH Q4H PRN PRN Reason: Nausea Sodium Chloride (Sodium Chloride 0.9% 10 Ml Syringe) 10 ml FLUSH ASDIRECTED PRN PRN Reason: Keep Vein Open Last Admin: 09/14/20 22:40 Dose: 10 ml Documented by: LINDSEY Sodium Chloride (Sodium Chloride 0.9% 2.5 Ml Syringe) 2.5 ml FLUSH ASDIRECTED PRN PRN Reason: Keep Vein Open Last Admin: 09/14/20 22:40 Dose: 2.5 ml Documented by: FEDLKER Assessment/Plan Comment:: 40 y/o M admitted for GI bleeding cont IV fluids hydration trend Hb Q8H, noticed drop in Hb but mostly dilutional from aggressive IV fluids Closely monitor vitals IV PPI BID IV zofran for Nausea Tylenol for pain NPO for now Surgery consulted, appreciate recs
[2020-09-15] MEDS ORDERED: 25% Dextrose in Water 10 ML Syringe IVPUSH PRN (08:54)
--- NOTE | 2020-09-15 11:05 | PCM.SN.2 ---
- Free Text/Narrative Note: pt seen, chart reviewed; gib, avoid NSAID or anticoagulation, hold tubefeed, wt pt daily, strict i/o, 2 large bore iv access, h/h q12, transfuse to hgb above 10, plan endoscope study early next week; will follow patient with you; [id number]
--- NOTE | 2020-09-15 14:07 | CONS ---
DATE OF CONSULTATION: 09/15/2020 DATE OF : 1980 PRIMARY CARE PHYSICIAN: Carlton Jha M.D. CONSULTING QUESTION: GI bleeding. HISTORY OF PRESENT ILLNESS: The patient is a 40-[facility]-old [facility] who has a history of stroke, has a history of CVA, was seen to have bright red blood per rectum per family in the [facility], and also subsequently not feeling well, so he was sent to the emergency room for assessment. At the emergency room, he was noted to be with hypotension and he was given fluid resuscitation, got 2 L, and blood pressure stable and the patient was then admitted to the hospitalist for further management. Surgery was consulted for possible GI bleeding and possible endoscopy study. The patient has a CVA in 2015 and since then he has left hemiparesis with some communication disorder and dysphagia. He is on tube feeding. He is not on a blood thinner. He has esophageal reflux and is taking famotidine for that. He has no history of significant GI bleeding in the past. ALLERGIES: Please refer to nursing for details. MEDICATIONS: Please refer to nursing for details. PAST MEDICAL HISTORY: Significant for no diabetes. PAST SURGICAL HISTORY: Significant for GT placement. PHYSICAL EXAMINATION: GENERAL: A very pleasant gentleman, smiled to the doctor, and communicating very well under the present condition. He follows order. He communicates with doctor. HEENT: Normocephalic and atraumatic. Sclerae anicteric. LUNGS: Clear. HEART: Regular rate and rhythm. ABDOMEN: Soft, nondistended. No pulsating tender midline abdominal structure. No surgical scar. No hernia. No mass palpated. Nontender. LABORATORY VALUES: Upon consultation, white count was 7, hemoglobin and hematocrit are 10 and 30.8, and platelets is 193. INR is 1.07. Lactate is 0.9. Sodium is 145, potassium is 4.5, BUN is 27, creatinine is 0.8, and total bilirubin is 0.2. AST and ALT are 15 and 29. Albumin is 2.3. COVID-19 is negative. IMPRESSION: Maroon stool or bright red blood per rectum is gastrointestinal bleeding. We will put in 2 large-bore intravenous access, at least 18-gauge. Weigh patient daily and strict in and out and monitor urine output as you are doing. The patient probably would benefit to have fluid resuscitation as he noted to be a little bit on the low side on blood pressure. Please hold off tube feeding for time being. The patient may benefit to have endoscopy study in the next couple of days, probably would be upper and lower, so the patient does not have to be n.p.o. at this stage. The patient can have clear liquid diet through the gtube. We will reassess from blood draws throughout the whole day and get a definite plan by tomorrow. We will follow the patient with you. Thank you for the consult and care for this pleasant patient. As always, thank you for your kind referral. KEVIN / YOSVANY /[id number] MARK
[2020-09-15] MEDS: Dextrose 5%-Lactated Ringers 1,000 ML IV SCH (18:41)
[2020-09-15] MEDS: Pantoprazole 40 MG in Sodium Chloride 0.9% 10 ML IV SCH (21:44)
[2020-09-16] MEDS: Dextrose 5%-Lactated Ringers 1,000 ML IV SCH ×2 (02:32→15:44)
[2020-09-16 06:08] LABS: BLOOD UREA NITROGEN,BUN 23 mg/dL (7.0-18.0); CARBON DIOXIDE,CO2 28.1 mmol/L (21.0-32.0); CHLORIDE,CL 112 mmol/L (98-107); GLUCOSE RANDOM 101 mg/dL (74-106); POTASSIUM,K 3.4 mmol/L (3.5-5.1); SODIUM,NA 147 mmol/L (136-148)
[2020-09-16] MEDS ORDERED: Magnesium Sulfate/Water 2 GM/50 ML BAG IV ONE (07:27)
[2020-09-16] MEDS ORDERED: NS + KCl 20mEq/L 1,000 ML IV SCH (07:30)
[2020-09-16] MEDS: Pantoprazole 40 MG in Sodium Chloride 0.9% 10 ML IV SCH ×2 (08:07→21:02)
--- NOTE | 2020-09-16 12:28 | PCM.PN ---
- General Info Date of Service: 09/16/20 Admission Dx/Problem (Free Text): Admission Diagnosis/Problem Admission Diagnosis/Problem GI bleed not requiring more than 4 units of blood in 24 hours, ICU, or surgery Subjective Update: seen at bedside, comfortable, no blood stools, no abdominal pain Functional Status: Reports: Pain Controlled, Urinating. Denies: Tolerating Diet - Review of Systems General: Denies: Fever, Weakness, Fatigue HEENT: Reports: Dysphasia. Denies: Ear Pain, Eye Pain Pulmonary: Denies: Shortness of Breath, Cough, Sputum Cardiovascular: Denies: Chest Pain, Palpitations Gastrointestinal: Denies: Abdominal Pain, Constipation, Decreased Appetite Genitourinary: Denies: Frequency, Burning, Pain Musculoskeletal: Denies: Shoulder Pain, Arm Pain, Hand Pain Skin: Denies: Jaundice, Mottled, Pallor Neurological: Denies: Dizziness, Headache, Numbness - Patient Data Vitals - Most Recent: Last Vital Signs Temp 36.4 C 09/16/20 12:11 Pulse 91 09/16/20 12:11 Resp 20 09/16/20 12:11 BP 103/62 09/16/20 12:11 Pulse Ox 97 09/16/20 12:00 Weight - Most Recent: 72.575 kg I&O - Last 24 Hours: Intake & Output 09/15/20 09/16/20 09/16/20 22:59 06:59 14:59 Intake Total 2346 1748 350 Output Total 1200 Balance 1146 1748 350 Lab Results Last 24 Hours: Laboratory Results - last 24 hr 09/14/20 09/15/20 09/15/20 Range/Units 23:23 17:20 18:20 WBC (4.0-11.0) K/uL RBC (4.50-5.90) M/uL Hgb 9.0 L (13.0-17.0) g/dL Hct 26.8 L (38.0-50.0) % MCV (80.0-98.0) fL MCH (27.0-32.0) pg MCHC (31.0-37.0) g/dL RDW Std Deviation (28.0-62.0) fl RDW Coeff of Claudette (11.0-15.0) % Plt Count (150-400) K/uL MPV (7.40-12.00) fL Neut % (Auto) (48.0-80.0) % Lymph % (Auto) (16.0-40.0) % [place] % (Auto) (0.0-15.0) % Eos % (Auto) (0.0-7.0) % Baso % (Auto) (0.0-1.5) % Neut # (Auto) (1.4-5.7) K/uL Lymph # (Auto) (0.6-2.4) K/uL [place] # (Auto) (0.0-0.8) K/uL Eos # (Auto) (0.0-0.7) K/uL Baso # (Auto) (0.0-0.1) K/uL Nucleated RBC % /100WBC Nucleated RBCs # K/uL Sodium (136-148) mmol/L Potassium (3.5-5.1) mmol/L Chloride (98-107) mmol/L Carbon Dioxide (21.0-32.0) mmol/L BUN (7.0-18.0) mg/dL Creatinine (0.8-1.3) mg/dL Est Cr Clr Drug Dosing mL/min Estimated GFR (MDRD) ml/min Glucose (74-106) mg/dL POC Glucose 83 (70-99) mg/dL Calcium (8.5-10.1) mg/dL Phosphorus (2.6-4.7) mg/dL Magnesium (1.8-2.4) mg/dL Blood Type O POSITIVE Antibody Screen NEGATIVE Crossmatch See Detail 09/16/20 09/16/20 09/16/20 Range/Units 00:14 05:18 05:18 WBC 4.87 (4.0-11.0) K/uL RBC 2.94 L (4.50-5.90) M/uL Hgb 8.7 L (13.0-17.0) g/dL Hct 26.9 L (38.0-50.0) % MCV 91.5 (80.0-98.0) fL MCH 29.6 (27.0-32.0) pg MCHC 32.3 (31.0-37.0) g/dL RDW Std Deviation 45.1 (28.0-62.0) fl RDW Coeff of Claudette 14 (11.0-15.0) % Plt Count 170 (150-400) K/uL MPV 12.00 (7.40-12.00) fL Neut % (Auto) 63.1 (48.0-80.0) % Lymph % (Auto) 26.9 (16.0-40.0) % [place] % (Auto) 8.4 (0.0-15.0) % Eos % (Auto) 1.2 (0.0-7.0) % Baso % (Auto) 0.4 (0.0-1.5) % Neut # (Auto) 3.1 (1.4-5.7) K/uL Lymph # (Auto) 1.3 (0.6-2.4) K/uL [place] # (Auto) 0.4 (0.0-0.8) K/uL Eos # (Auto) 0.1 (0.0-0.7) K/uL Baso # (Auto) 0.0 (0.0-0.1) K/uL Nucleated RBC % 0.0 /100WBC Nucleated RBCs # 0 K/uL Sodium 147 (136-148) mmol/L Potassium 3.4 L (3.5-5.1) mmol/L Chloride 112 H (98-107) mmol/L Carbon Dioxide 28.1 (21.0-32.0) mmol/L BUN 23 H (7.0-18.0) mg/dL Creatinine 0.8 (0.8-1.3) mg/dL Est Cr Clr Drug Dosing 121.52 mL/min Estimated GFR (MDRD) > 60.0 ml/min Glucose 101 (74-106) mg/dL POC Glucose 88 (70-99) mg/dL Calcium 7.6 L (8.5-10.1) mg/dL Phosphorus 3.0 (2.6-4.7) mg/dL Magnesium 1.5 L (1.8-2.4) mg/dL Blood Type Antibody Screen Crossmatch 09/16/20 Range/Units 12:08 WBC (4.0-11.0) K/uL RBC (4.50-5.90) M/uL Hgb (13.0-17.0) g/dL Hct (38.0-50.0) % MCV (80.0-98.0) fL MCH (27.0-32.0) pg MCHC (31.0-37.0) g/dL RDW Std Deviation (28.0-62.0) fl RDW Coeff of Claudette (11.0-15.0) % Plt Count (150-400) K/uL MPV (7.40-12.00) fL Neut % (Auto) (48.0-80.0) % Lymph % (Auto) (16.0-40.0) % [place] % (Auto) (0.0-15.0) % Eos % (Auto) (0.0-7.0) % Baso % (Auto) (0.0-1.5) % Neut # (Auto) (1.4-5.7) K/uL Lymph # (Auto) (0.6-2.4) K/uL [place] # (Auto) (0.0-0.8) K/uL Eos # (Auto) (0.0-0.7) K/uL Baso # (Auto) (0.0-0.1) K/uL Nucleated RBC % /100WBC Nucleated RBCs # K/uL Sodium (136-148) mmol/L Potassium (3.5-5.1) mmol/L Chloride (98-107) mmol/L Carbon Dioxide (21.0-32.0) mmol/L BUN (7.0-18.0) mg/dL Creatinine (0.8-1.3) mg/dL Est Cr Clr Drug Dosing mL/min Estimated GFR (MDRD) ml/min Glucose (74-106) mg/dL POC Glucose 105 H (70-99) mg/dL Calcium (8.5-10.1) mg/dL Phosphorus (2.6-4.7) mg/dL Magnesium (1.8-2.4) mg/dL Blood Type Antibody Screen Crossmatch Med Orders - Current: Current Medications Acetaminophen (Acetaminophen 325 Mg/10.15 Ml Ml) 500 mg PEGTUBE Q4H PRN PRN Reason: Pain Albuterol/Ipratropium (Albuterol/Ipratropium 3.0-0.5 Mg/3 Ml Neb Soln) 3 ml NEB Q4HRRT PRN PRN Reason: Shortness of Breath Dextrose/Water (25% Dextrose In Water 10 Ml Syringe) 10 ml IVPUSH ONETIME PRN PRN Reason: Hypoglycemia Pantoprazole Sodium 40 mg/ (Sodium Chloride) 10 mls @ 200 mls/hr IV BID [facility] Last Admin: 09/16/20 08:07 Dose: 200 mls/hr Documented by: Dextrose/Lactated Ringer's (Dextrose 5%-Lactated Ringers) 1,000 mls @ 125 mls/hr IV ASDIRECTED [facility] Last Admin: 09/16/20 02:32 Dose: 125 mls/hr Documented by: Potassium Chloride/Sodium Chloride (Normal Saline With 20 Meq Kcl) 1,000 mls @ 150 mls/hr IV ASDIRECTED [facility] Last Admin: 09/16/20 08:07 Dose: 150 mls/hr Documented by: Lorazepam (Lorazepam 2 Mg/Ml Sdv) 0.5 mg IVPUSH Q6H PRN PRN Reason: Anxiety Ondansetron HCl (Ondansetron 4 Mg/2 Ml Sdv) 4 mg IVPUSH Q4H PRN PRN Reason: Nausea Sodium Chloride (Sodium Chloride 0.9% 10 Ml Syringe) 10 ml FLUSH ASDIRECTED PRN PRN Reason: Keep Vein Open Last Admin: 09/14/20 22:40 Dose: 10 ml Documented by: Sodium Chloride (Sodium Chloride 0.9% 2.5 Ml Syringe) 2.5 ml FLUSH ASDIRECTED PRN PRN Reason: Keep Vein Open Last Admin: 09/14/20 22:40 Dose: 2.5 ml Documented by: Discontinued Medications Acetaminophen (Acetaminophen 325 Mg/10.15 Ml Ml) 496 mg PEGTUBE Q4H PRN PRN Reason: Pain Pantoprazole Sodium 40 mg/ (Sodium Chloride) 10 mls @ 300 mls/hr IV NOW ONE Stop: 09/14/20 22:32 Last Admin: 09/14/20 22:40 Dose: 300 mls/hr Documented by: Sodium Chloride (Normal Saline) 1,000 mls @ 1,000 mls/hr IV .Bolus ONE Stop: 09/14/20 23:33 Last Admin: 09/14/20 22:40 Dose: 1,000 mls/hr Documented by: Pantoprazole Sodium 80 mg/ (Sodium Chloride) 100 mls @ 10 mls/hr IV NOW ONE Stop: 09/15/20 11:13 Pantoprazole Sodium 40 mg/ (Sodium Chloride) 10 mls @ 300 mls/hr IVPUSH ONETIME ONE Stop: 09/15/20 01:32 Last Admin: 09/15/20 01:53 Dose: 300 mls/hr Documented by: Pantoprazole Sodium 80 mg/ (Sodium Chloride) 100 mls @ 10 mls/hr IV NOW ONE Stop: 09/15/20 11:44 Last Admin: 09/15/20 01:53 Dose: 10 mls/hr Documented by: Lactated Ringer's (Ringers, Lactated) 1,000 mls @ 125 mls/hr IV ASDIRECTED [facility] Last Infusion: 09/15/20 12:51 Dose: 125 mls/hr Documented by: Lactated Ringer's (Ringers, Lactated) 1,000 mls @ 999 mls/hr IV .BOLUS ONE Stop: 09/15/20 08:59 Last Admin: 09/15/20 08:37 Dose: 999 mls/hr Documented by: Magnesium Sulfate (Magnesium Sulfate In Water 2 Gm/50 Ml) 2 gm in 50 mls @ 50 mls/hr IV ONETIME ONE Stop: 09/16/20 08:26 Last Admin: 09/16/20 08:08 Dose: 50 mls/hr Documented by: Pantoprazole Sodium (Pantoprazole 40 Mg Vial) Confirm Administered Dose 80 mg .ROUTE .STK-MED ONE Stop: 09/15/20 01:23 Last Admin: 09/15/20 01:33 Dose: Not Given Documented by: - Exam Quality Assessment: No: Supplemental Oxygen General: Alert, Oriented, Cooperative, No Acute Distress Neck: No: Trachea Midline Lungs: No: Clear to Auscultation, Normal Respiratory Effort, Decreased Breath Sounds Cardiovascular: No: Regular Rate, Regular Rhythm GI/Abdominal Exam: No: Normal Bowel Sounds, Soft, Non-Tender - Patient Data Lab Results Last 24 hrs: Laboratory Results - last 24 hr 09/14/20 09/15/20 09/15/20 Range/Units 23:23 17:20 18:20 WBC (4.0-11.0) K/uL RBC (4.50-5.90) M/uL Hgb 9.0 L (13.0-17.0) g/dL Hct 26.8 L (38.0-50.0) % MCV (80.0-98.0) fL MCH (27.0-32.0) pg MCHC (31.0-37.0) g/dL RDW Std Deviation (28.0-62.0) fl RDW Coeff of Claudette (11.0-15.0) % Plt Count (150-400) K/uL MPV (7.40-12.00) fL Neut % (Auto) (48.0-80.0) % Lymph % (Auto) (16.0-40.0) % [place] % (Auto) (0.0-15.0) % Eos % (Auto) (0.0-7.0) % Baso % (Auto) (0.0-1.5) % Neut # (Auto) (1.4-5.7) K/uL Lymph # (Auto) (0.6-2.4) K/uL [place] # (Auto) (0.0-0.8) K/uL Eos # (Auto) (0.0-0.7) K/uL Baso # (Auto) (0.0-0.1) K/uL Nucleated RBC % /100WBC Nucleated RBCs # K/uL Sodium (136-148) mmol/L Potassium (3.5-5.1) mmol/L Chloride (98-107) mmol/L Carbon Dioxide (21.0-32.0) mmol/L BUN (7.0-18.0) mg/dL Creatinine (0.8-1.3) mg/dL Est Cr Clr Drug Dosing mL/min Estimated GFR (MDRD) ml/min Glucose (74-106) mg/dL POC Glucose 83 (70-99) mg/dL Calcium (8.5-10.1) mg/dL Phosphorus (2.6-4.7) mg/dL Magnesium (1.8-2.4) mg/dL Blood Type O POSITIVE Antibody Screen NEGATIVE Crossmatch See Detail 09/16/20 09/16/20 09/16/20 Range/Units 00:14 05:18 05:18 WBC 4.87 (4.0-11.0) K/uL RBC 2.94 L (4.50-5.90) M/uL Hgb 8.7 L (13.0-17.0) g/dL Hct 26.9 L (38.0-50.0) % MCV 91.5 (80.0-98.0) fL MCH 29.6 (27.0-32.0) pg MCHC 32.3 (31.0-37.0) g/dL RDW Std Deviation 45.1 (28.0-62.0) fl RDW Coeff of Claudette 14 (11.0-15.0) % Plt Count 170 (150-400) K/uL MPV 12.00 (7.40-12.00) fL Neut % (Auto) 63.1 (48.0-80.0) % Lymph % (Auto) 26.9 (16.0-40.0) % [place] % (Auto) 8.4 (0.0-15.0) % Eos % (Auto) 1.2 (0.0-7.0) % Baso % (Auto) 0.4 (0.0-1.5) % Neut # (Auto) 3.1 (1.4-5.7) K/uL Lymph # (Auto) 1.3 (0.6-2.4) K/uL [place] # (Auto) 0.4 (0.0-0.8) K/uL Eos # (Auto) 0.1 (0.0-0.7) K/uL Baso # (Auto) 0.0 (0.0-0.1) K/uL Nucleated RBC % 0.0 /100WBC Nucleated RBCs # 0 K/uL Sodium 147 (136-148) mmol/L Potassium 3.4 L (3.5-5.1) mmol/L Chloride 112 H (98-107) mmol/L Carbon Dioxide 28.1 (21.0-32.0) mmol/L BUN 23 H (7.0-18.0) mg/dL Creatinine 0.8 (0.8-1.3) mg/dL Est Cr Clr Drug Dosing 121.52 mL/min Estimated GFR (MDRD) > 60.0 ml/min Glucose 101 (74-106) mg/dL POC Glucose 88 (70-99) mg/dL Calcium 7.6 L (8.5-10.1) mg/dL Phosphorus 3.0 (2.6-4.7) mg/dL Magnesium 1.5 L (1.8-2.4) mg/dL Blood Type Antibody Screen Crossmatch 09/16/20 Range/Units 12:08 WBC (4.0-11.0) K/uL RBC (4.50-5.90) M/uL Hgb (13.0-17.0) g/dL Hct (38.0-50.0) % MCV (80.0-98.0) fL MCH (27.0-32.0) pg MCHC (31.0-37.0) g/dL RDW Std Deviation (28.0-62.0) fl RDW Coeff of Claudette (11.0-15.0) % Plt Count (150-400) K/uL MPV (7.40-12.00) fL Neut % (Auto) (48.0-80.0) % Lymph % (Auto) (16.0-40.0) % [place] % (Auto) (0.0-15.0) % Eos % (Auto) (0.0-7.0) % Baso % (Auto) (0.0-1.5) % Neut # (Auto) (1.4-5.7) K/uL Lymph # (Auto) (0.6-2.4) K/uL [place] # (Auto) (0.0-0.8) K/uL Eos # (Auto) (0.0-0.7) K/uL Baso # (Auto) (0.0-0.1) K/uL Nucleated RBC % /100WBC Nucleated RBCs # K/uL Sodium (136-148) mmol/L Potassium (3.5-5.1) mmol/L Chloride (98-107) mmol/L Carbon Dioxide (21.0-32.0) mmol/L BUN (7.0-18.0) mg/dL Creatinine (0.8-1.3) mg/dL Est Cr Clr Drug Dosing mL/min Estimated GFR (MDRD) ml/min Glucose (74-106) mg/dL POC Glucose 105 H (70-99) mg/dL Calcium (8.5-10.1) mg/dL Phosphorus (2.6-4.7) mg/dL Magnesium (1.8-2.4) mg/dL Blood Type Antibody Screen Crossmatch Result Diagrams: 09/16/20 14:05 09/16/20 05:18 Sepsis Event Note - Evaluation Sepsis Screening Result: No Definite Risk - Focused Exam Vital Signs: Vital Signs Temp Temp Pulse Resp BP BP Pulse Ox 09/16/20 12:11 36.4 C 91 20 103/62 09/16/20 12:00 36.7 C 97 18 105/68 97 09/16/20 08:38 36.4 C 91 20 97/65 09/16/20 08:23 36.3 C 76 20 108/54 L 98 09/16/20 08:00 36.7 C 74 16 93/61 98 09/16/20 04:00 36.1 C 106 H 16 112/61 96 09/16/20 00:59 36.2 C 82 16 99/62 96 - Problem List & Annotations (1) GI bleed SNOMED Code(s): 06067976 Code(s): K92.2 - GASTROINTESTINAL HEMORRHAGE, UNSPECIFIED Status: Acute Current Visit: Yes (2) CVA, Cerebrovascular accident SNOMED Code(s): 639545185 Code(s): I63.9 - CEREBRAL INFARCTION, UNSPECIFIED Status: Acute Current Visit: No - Problem List Review Problem List Initiated/Reviewed/Updated: Yes - My Orders Last 24 Hours: My Active Orders 09/15/20 16:55 Resuscitation Status Routine 09/15/20 18:15 Dextrose 5%-Lactated Ringers 1,000 ml IV ASDIRECTED 09/15/20 21:00 Pantoprazole [ProTONIX IV] 40 mg Sodium Chloride 0.9% [Normal Saline] 10 ml IV BID 09/16/20 07:28 Transfuse PRBC [Transfuse Red Blood Cells] [COMM] Routine 09/16/20 07:30 NS + KCl 20mEq/L [Normal Saline with 20 mEq KCl] 1,000 ml IV ASDIRECTED 09/16/20 12:23 PEG Tube Management [Percutaneous Endoscopic Gastostomy Tube] [OM.PC] QSHIFT - Plan Plan:: 40 y/o M admitted for GI bleeding cont IV fluids hydration, s/p 1 prbc transfusion, will transfuse another unit. trend Hb post transfusion, noticed drop in Hb but mostly dilutional from aggressive IV fluids Closely monitor vitals IV PPI BID IV zofran for Nausea Tylenol for pain start clears, colonoscopy on Thursday Surgery consulted, appreciate recs
--- NOTE | 2020-09-16 13:19 | PCM.SURGPN ---
- General Info Date of Service: 09/16/20 Functional Status: Reports: Pain Controlled - Review of Systems General: Reports: No Symptoms (No more bloody BM, and is v hungry, TF was off. H/H trend down, albeit slowly; got 2 rbc) - Patient Data Vitals - Most Recent: Last Vital Signs Temp 98.1 F 09/16/20 13:12 Pulse 89 09/16/20 13:12 Resp 18 09/16/20 13:12 BP 112/70 09/16/20 13:12 Pulse Ox 97 09/16/20 12:00 Weight - Most Recent: 160 lb I&O - Last 24 Hours: Intake & Output 09/15/20 09/16/20 09/16/20 22:59 06:59 14:59 Intake Total 2346 1748 350 Output Total 1200 Balance 1146 1748 350 Lab Results Last 24 Hrs: Laboratory Results - last 24 hr 09/14/20 09/15/20 09/15/20 Range/Units 23:23 17:20 18:20 WBC (4.0-11.0) K/uL RBC (4.50-5.90) M/uL Hgb 9.0 L (13.0-17.0) g/dL Hct 26.8 L (38.0-50.0) % MCV (80.0-98.0) fL MCH (27.0-32.0) pg MCHC (31.0-37.0) g/dL RDW Std Deviation (28.0-62.0) fl RDW Coeff of Claudette (11.0-15.0) % Plt Count (150-400) K/uL MPV (7.40-12.00) fL Neut % (Auto) (48.0-80.0) % Lymph % (Auto) (16.0-40.0) % [place] % (Auto) (0.0-15.0) % Eos % (Auto) (0.0-7.0) % Baso % (Auto) (0.0-1.5) % Neut # (Auto) (1.4-5.7) K/uL Lymph # (Auto) (0.6-2.4) K/uL [place] # (Auto) (0.0-0.8) K/uL Eos # (Auto) (0.0-0.7) K/uL Baso # (Auto) (0.0-0.1) K/uL Nucleated RBC % /100WBC Nucleated RBCs # K/uL Sodium (136-148) mmol/L Potassium (3.5-5.1) mmol/L Chloride (98-107) mmol/L Carbon Dioxide (21.0-32.0) mmol/L BUN (7.0-18.0) mg/dL Creatinine (0.8-1.3) mg/dL Est Cr Clr Drug Dosing mL/min Estimated GFR (MDRD) ml/min Glucose (74-106) mg/dL POC Glucose 83 (70-99) mg/dL Calcium (8.5-10.1) mg/dL Phosphorus (2.6-4.7) mg/dL Magnesium (1.8-2.4) mg/dL Blood Type O POSITIVE Antibody Screen NEGATIVE Crossmatch See Detail 09/16/20 09/16/20 09/16/20 Range/Units 00:14 05:18 05:18 WBC 4.87 (4.0-11.0) K/uL RBC 2.94 L (4.50-5.90) M/uL Hgb 8.7 L (13.0-17.0) g/dL Hct 26.9 L (38.0-50.0) % MCV 91.5 (80.0-98.0) fL MCH 29.6 (27.0-32.0) pg MCHC 32.3 (31.0-37.0) g/dL RDW Std Deviation 45.1 (28.0-62.0) fl RDW Coeff of Claudette 14 (11.0-15.0) % Plt Count 170 (150-400) K/uL MPV 12.00 (7.40-12.00) fL Neut % (Auto) 63.1 (48.0-80.0) % Lymph % (Auto) 26.9 (16.0-40.0) % [place] % (Auto) 8.4 (0.0-15.0) % Eos % (Auto) 1.2 (0.0-7.0) % Baso % (Auto) 0.4 (0.0-1.5) % Neut # (Auto) 3.1 (1.4-5.7) K/uL Lymph # (Auto) 1.3 (0.6-2.4) K/uL [place] # (Auto) 0.4 (0.0-0.8) K/uL Eos # (Auto) 0.1 (0.0-0.7) K/uL Baso # (Auto) 0.0 (0.0-0.1) K/uL Nucleated RBC % 0.0 /100WBC Nucleated RBCs # 0 K/uL Sodium 147 (136-148) mmol/L Potassium 3.4 L (3.5-5.1) mmol/L Chloride 112 H (98-107) mmol/L Carbon Dioxide 28.1 (21.0-32.0) mmol/L BUN 23 H (7.0-18.0) mg/dL Creatinine 0.8 (0.8-1.3) mg/dL Est Cr Clr Drug Dosing 121.52 mL/min Estimated GFR (MDRD) > 60.0 ml/min Glucose 101 (74-106) mg/dL POC Glucose 88 (70-99) mg/dL Calcium 7.6 L (8.5-10.1) mg/dL Phosphorus 3.0 (2.6-4.7) mg/dL Magnesium 1.5 L (1.8-2.4) mg/dL Blood Type Antibody Screen Crossmatch 09/16/20 Range/Units 12:08 WBC (4.0-11.0) K/uL RBC (4.50-5.90) M/uL Hgb (13.0-17.0) g/dL Hct (38.0-50.0) % MCV (80.0-98.0) fL MCH (27.0-32.0) pg MCHC (31.0-37.0) g/dL RDW Std Deviation (28.0-62.0) fl RDW Coeff of Claudette (11.0-15.0) % Plt Count (150-400) K/uL MPV (7.40-12.00) fL Neut % (Auto) (48.0-80.0) % Lymph % (Auto) (16.0-40.0) % [place] % (Auto) (0.0-15.0) % Eos % (Auto) (0.0-7.0) % Baso % (Auto) (0.0-1.5) % Neut # (Auto) (1.4-5.7) K/uL Lymph # (Auto) (0.6-2.4) K/uL [place] # (Auto) (0.0-0.8) K/uL Eos # (Auto) (0.0-0.7) K/uL Baso # (Auto) (0.0-0.1) K/uL Nucleated RBC % /100WBC Nucleated RBCs # K/uL Sodium (136-148) mmol/L Potassium (3.5-5.1) mmol/L Chloride (98-107) mmol/L Carbon Dioxide (21.0-32.0) mmol/L BUN (7.0-18.0) mg/dL Creatinine (0.8-1.3) mg/dL Est Cr Clr Drug Dosing mL/min Estimated GFR (MDRD) ml/min Glucose (74-106) mg/dL POC Glucose 105 H (70-99) mg/dL Calcium (8.5-10.1) mg/dL Phosphorus (2.6-4.7) mg/dL Magnesium (1.8-2.4) mg/dL Blood Type Antibody Screen Crossmatch Med Orders - Current: Current Medications Acetaminophen (Acetaminophen 325 Mg/10.15 Ml Ml) 500 mg PEGTUBE Q4H PRN PRN Reason: Pain Albuterol/Ipratropium (Albuterol/Ipratropium 3.0-0.5 Mg/3 Ml Neb Soln) 3 ml NEB Q4HRRT PRN PRN Reason: Shortness of Breath Dextrose/Water (25% Dextrose In Water 10 Ml Syringe) 10 ml IVPUSH ONETIME PRN PRN Reason: Hypoglycemia Pantoprazole Sodium 40 mg/ (Sodium Chloride) 10 mls @ 200 mls/hr IV BID [facility] Last Admin: 09/16/20 08:07 Dose: 200 mls/hr Documented by: Dextrose/Lactated Ringer's (Dextrose 5%-Lactated Ringers) 1,000 mls @ 125 mls/hr IV ASDIRECTED [facility] Last Admin: 09/16/20 02:32 Dose: 125 mls/hr Documented by: Potassium Chloride/Sodium Chloride (Normal Saline With 20 Meq Kcl) 1,000 mls @ 150 mls/hr IV ASDIRECTED [facility] Last Admin: 09/16/20 08:07 Dose: 150 mls/hr Documented by: Lorazepam (Lorazepam 2 Mg/Ml Sdv) 0.5 mg IVPUSH Q6H PRN PRN Reason: Anxiety Ondansetron HCl (Ondansetron 4 Mg/2 Ml Sdv) 4 mg IVPUSH Q4H PRN PRN Reason: Nausea Sodium Chloride (Sodium Chloride 0.9% 10 Ml Syringe) 10 ml FLUSH ASDIRECTED PRN PRN Reason: Keep Vein Open Last Admin: 09/14/20 22:40 Dose: 10 ml Documented by: Sodium Chloride (Sodium Chloride 0.9% 2.5 Ml Syringe) 2.5 ml FLUSH ASDIRECTED PRN PRN Reason: Keep Vein Open Last Admin: 09/14/20 22:40 Dose: 2.5 ml Documented by: Discontinued Medications Acetaminophen (Acetaminophen 325 Mg/10.15 Ml Ml) 496 mg PEGTUBE Q4H PRN PRN Reason: Pain Pantoprazole Sodium 40 mg/ (Sodium Chloride) 10 mls @ 300 mls/hr IV NOW ONE Stop: 09/14/20 22:32 Last Admin: 09/14/20 22:40 Dose: 300 mls/hr Documented by: Sodium Chloride (Normal Saline) 1,000 mls @ 1,000 mls/hr IV .Bolus ONE Stop: 09/14/20 23:33 Last Admin: 09/14/20 22:40 Dose: 1,000 mls/hr Documented by: Pantoprazole Sodium 80 mg/ (Sodium Chloride) 100 mls @ 10 mls/hr IV NOW ONE Stop: 09/15/20 11:13 Pantoprazole Sodium 40 mg/ (Sodium Chloride) 10 mls @ 300 mls/hr IVPUSH ONETIME ONE Stop: 09/15/20 01:32 Last Admin: 09/15/20 01:53 Dose: 300 mls/hr Documented by: Pantoprazole Sodium 80 mg/ (Sodium Chloride) 100 mls @ 10 mls/hr IV NOW ONE Stop: 09/15/20 11:44 Last Admin: 09/15/20 01:53 Dose: 10 mls/hr Documented by: Lactated Ringer's (Ringers, Lactated) 1,000 mls @ 125 mls/hr IV ASDIRECTED TOBY Last Infusion: 09/15/20 12:51 Dose: 125 mls/hr Documented by: Lactated Ringer's (Ringers, Lactated) 1,000 mls @ 999 mls/hr IV .BOLUS ONE Stop: 09/15/20 08:59 Last Admin: 09/15/20 08:37 Dose: 999 mls/hr Documented by: Magnesium Sulfate (Magnesium Sulfate In Water 2 Gm/50 Ml) 2 gm in 50 mls @ 50 mls/hr IV ONETIME ONE Stop: 09/16/20 08:26 Last Admin: 09/16/20 08:08 Dose: 50 mls/hr Documented by: Pantoprazole Sodium (Pantoprazole 40 Mg Vial) Confirm Administered Dose 80 mg .ROUTE .STK-MED ONE Stop: 09/15/20 01:23 Last Admin: 09/15/20 01:33 Dose: Not Given Documented by: - Exam GI/Abdominal Exam: Normal Bowel Sounds, Soft, Non-Tender, No Distention Sepsis Event Note - Evaluation Sepsis Screening Result: No Definite Risk - Focused Exam Vital Signs: Vital Signs Temp Temp Pulse Resp BP BP Pulse Ox 09/16/20 13:12 98.1 F 89 18 112/70 09/16/20 12:11 97.6 F 91 20 103/62 09/16/20 12:00 98.0 F 97 18 105/68 97 09/16/20 08:38 97.5 F 91 20 97/65 09/16/20 08:23 97.4 F 76 20 108/54 L 98 09/16/20 08:00 98.0 F 74 16 93/61 98 09/16/20 04:00 97 F 106 H 16 112/61 96 - Problem List Review Problem List Initiated/Reviewed/Updated: Yes - My Orders Last 24 Hours: Active Orders 24 hr Category Date Time Status BMP [BASIC METABOLIC PANEL,BMP] [CHEM] AM Lab 09/17/20 05:11 Ordered CBC WITH AUTO DIFF [HEME] AM Lab 09/17/20 05:11 Ordered HEMOGLOBIN/HEMATOCRIT,HH [HEME] Routine Lab 09/16/20 14:00 Ordered MAGNESIUM [CHEM] AM Lab 09/17/20 05:11 Ordered PHOSPHORUS [CHEM] AM Lab 09/17/20 05:11 Ordered Dextrose 5%-Lactated Ringers 1,000 ml Med 09/15/20 18:15 Active IV ASDIRECTED NS + KCl 20mEq/L [Normal Saline with 20 mEq KCl] 1,000 Med 09/16/20 07:30 Active ml IV ASDIRECTED Pantoprazole [ProTONIX IV] 40 mg Med 09/15/20 21:00 Active Sodium Chloride 0.9% [Normal Saline] 10 ml IV BID PEG Tube Management [Percutaneous Endoscopic Gastostomy Ot 09/16/20 12:23 Ordered Tube] [OM.PC] QSHIFT Transfuse PRBC [Transfuse Red Blood Cells] [COMM] Ot 09/16/20 07:28 Ordered Routine Resuscitation Status Routine Resus Stat 09/15/20 16:55 Ordered Medication Orders Acetaminophen (Acetaminophen 325 Mg/10.15 Ml Ml) 500 mg PEGTUBE Q4H PRN PRN Reason: Pain Albuterol/Ipratropium (Albuterol/Ipratropium 3.0-0.5 Mg/3 Ml Neb Soln) 3 ml NEB Q4HRRT PRN PRN Reason: Shortness of Breath Dextrose/Water (25% Dextrose In Water 10 Ml Syringe) 10 ml IVPUSH ONETIME PRN PRN Reason: Hypoglycemia Pantoprazole Sodium 40 mg/ (Sodium Chloride) 10 mls @ 200 mls/hr IV BID [facility] Last Admin: 09/16/20 08:07 Dose: 200 mls/hr Documented by: Infusion: 09/15/20 21:47 Dose: 200 mls/hr Documented by: Admin: 09/15/20 21:44 Dose: 200 mls/hr Documented by: LIANNA Dextrose/Lactated Ringer's (Dextrose 5%-Lactated Ringers) 1,000 mls @ 125 mls/hr IV ASDIRECTED [facility] Last Admin: 09/16/20 02:32 Dose: 125 mls/hr Documented by: Infusion: 09/16/20 02:32 Dose: 125 mls/hr Documented by: Admin: 09/15/20 18:41 Dose: 125 mls/hr Documented by: AVANI Potassium Chloride/Sodium Chloride (Normal Saline With 20 Meq Kcl) 1,000 mls @ 150 mls/hr IV ASDIRECTED [facility] Last Admin: 09/16/20 08:07 Dose: 150 mls/hr Documented by: AZALEA Lorazepam (Lorazepam 2 Mg/Ml Sdv) 0.5 mg IVPUSH Q6H PRN PRN Reason: Anxiety Ondansetron HCl (Ondansetron 4 Mg/2 Ml Sdv) 4 mg IVPUSH Q4H PRN PRN Reason: Nausea Sodium Chloride (Sodium Chloride 0.9% 10 Ml Syringe) 10 ml FLUSH ASDIRECTED PRN PRN Reason: Keep Vein Open Last Admin: 09/14/20 22:40 Dose: 10 ml Documented by: LINDSEY Sodium Chloride (Sodium Chloride 0.9% 2.5 Ml Syringe) 2.5 ml FLUSH ASDIRECTED PRN PRN Reason: Keep Vein Open Last Admin: 09/14/20 22:40 Dose: 2.5 ml Documented by: LINDSEY - Assessment Assessment (Free Text/Narrative):: gib, likely diverticulitis bleeding; would benefit from 750mg iv levagquine qd, and flagyl 500mg iv q8; continue to follow h/h; if signs of active bleeding, may need to transfer out for interventional radiology; pt is hd much stable after agressive fluid resucitation; and UOP is more than adequate. - Plan Plan (Free Text/Narrative):: gib, likely diverticulitis bleeding; would benefit from 750mg iv levagquine qd, and flagyl 500mg iv q8; continue to follow h/h; if signs of active bleeding, may need to transfer out for interventional radiology; pt is hd much stable after agressive fluid resucitation; and UOP is more than adequate.
[2020-09-16] MEDS: Piperacillin/Tazobactam 3.375 GM in Sodium Chloride 0.9% 50 ML IV SCH ×2 (14:27→21:08)
[2020-09-16] MEDS ORDERED: Sodium Bicarbonate 8.4% 50 MEQ/50 ML Syringe ONE (16:12)
[2020-09-17] MEDS: Dextrose 5%-Lactated Ringers 1,000 ML IV SCH (00:12)
[2020-09-17] MEDS: Piperacillin/Tazobactam 3.375 GM in Sodium Chloride 0.9% 50 ML IV SCH (05:52)
[2020-09-17 06:13] LABS: BLOOD UREA NITROGEN,BUN 18 mg/dL (7.0-18.0); CARBON DIOXIDE,CO2 27.7 mmol/L (21.0-32.0); CHLORIDE,CL 113 mmol/L (98-107); GLUCOSE RANDOM 102 mg/dL (74-106); POTASSIUM,K 3.4 mmol/L (3.5-5.1); SODIUM,NA 147 mmol/L (136-148)
[2020-09-17] MEDS: Pantoprazole 40 MG in Sodium Chloride 0.9% 10 ML IV SCH (08:09)
[2020-09-17] MEDS ORDERED: Magnesium Sulfate/Water 2 GM/50 ML BAG IV ONE (08:15)
--- NOTE | 2020-09-17 09:44 | PCM.SURGPN ---
- General Info Date of Service: 09/17/20 Functional Status: Reports: Pain Controlled (large BRBPR 1300 overnight; hd stable, no abd pain/n/v) - Patient Data Vitals - Most Recent: Last Vital Signs Temp 97.7 F 09/17/20 08:06 Pulse 86 09/17/20 08:06 Resp 17 09/17/20 08:06 BP 102/55 L 09/17/20 08:06 Pulse Ox 95 09/17/20 08:06 Weight - Most Recent: 160 lb I&O - Last 24 Hours: Intake & Output 09/16/20 09/17/20 09/17/20 22:59 06:59 14:59 Intake Total 2078 0 Output Total 1300 700 Balance 778 -700 Lab Results Last 24 Hrs: Laboratory Results - last 24 hr 09/14/20 09/16/20 09/16/20 Range/Units 23:23 12:08 14:05 WBC (4.0-11.0) K/uL RBC (4.50-5.90) M/uL Hgb 10.6 L (13.0-17.0) g/dL Hct 31.8 L (38.0-50.0) % MCV (80.0-98.0) fL MCH (27.0-32.0) pg MCHC (31.0-37.0) g/dL RDW Std Deviation (28.0-62.0) fl RDW Coeff of Claudette (11.0-15.0) % Plt Count (150-400) K/uL MPV (7.40-12.00) fL Neut % (Auto) (48.0-80.0) % Lymph % (Auto) (16.0-40.0) % [place] % (Auto) (0.0-15.0) % Eos % (Auto) (0.0-7.0) % Baso % (Auto) (0.0-1.5) % Neut # (Auto) (1.4-5.7) K/uL Lymph # (Auto) (0.6-2.4) K/uL [place] # (Auto) (0.0-0.8) K/uL Eos # (Auto) (0.0-0.7) K/uL Baso # (Auto) (0.0-0.1) K/uL Nucleated RBC % /100WBC Nucleated RBCs # K/uL Sodium (136-148) mmol/L Potassium (3.5-5.1) mmol/L Chloride (98-107) mmol/L Carbon Dioxide (21.0-32.0) mmol/L BUN (7.0-18.0) mg/dL Creatinine (0.8-1.3) mg/dL Est Cr Clr Drug Dosing mL/min Estimated GFR (MDRD) ml/min Glucose (74-106) mg/dL POC Glucose 105 H (70-99) mg/dL Calcium (8.5-10.1) mg/dL Phosphorus (2.6-4.7) mg/dL Magnesium (1.8-2.4) mg/dL Crossmatch See Detail 09/16/20 09/17/20 09/17/20 Range/Units 17:50 00:10 05:32 WBC 5.23 (4.0-11.0) K/uL RBC 2.71 L (4.50-5.90) M/uL Hgb 8.1 L (13.0-17.0) g/dL Hct 24.8 L (38.0-50.0) % MCV 91.5 (80.0-98.0) fL MCH 29.9 (27.0-32.0) pg MCHC 32.7 (31.0-37.0) g/dL RDW Std Deviation 45.4 (28.0-62.0) fl RDW Coeff of Claudette 14 (11.0-15.0) % Plt Count 149 L (150-400) K/uL MPV 11.30 (7.40-12.00) fL Neut % (Auto) 55.8 (48.0-80.0) % Lymph % (Auto) 31.0 (16.0-40.0) % [place] % (Auto) 11.7 (0.0-15.0) % Eos % (Auto) 1.1 (0.0-7.0) % Baso % (Auto) 0.4 (0.0-1.5) % Neut # (Auto) 2.9 (1.4-5.7) K/uL Lymph # (Auto) 1.6 (0.6-2.4) K/uL [place] # (Auto) 0.6 (0.0-0.8) K/uL Eos # (Auto) 0.1 (0.0-0.7) K/uL Baso # (Auto) 0.0 (0.0-0.1) K/uL Nucleated RBC % 0.0 /100WBC Nucleated RBCs # 0 K/uL Sodium (136-148) mmol/L Potassium (3.5-5.1) mmol/L Chloride (98-107) mmol/L Carbon Dioxide (21.0-32.0) mmol/L BUN (7.0-18.0) mg/dL Creatinine (0.8-1.3) mg/dL Est Cr Clr Drug Dosing mL/min Estimated GFR (MDRD) ml/min Glucose (74-106) mg/dL POC Glucose 88 94 (70-99) mg/dL Calcium (8.5-10.1) mg/dL Phosphorus (2.6-4.7) mg/dL Magnesium (1.8-2.4) mg/dL Crossmatch 09/17/20 09/17/20 Range/Units 05:32 05:55 WBC (4.0-11.0) K/uL RBC (4.50-5.90) M/uL Hgb (13.0-17.0) g/dL Hct (38.0-50.0) % MCV (80.0-98.0) fL MCH (27.0-32.0) pg MCHC (31.0-37.0) g/dL RDW Std Deviation (28.0-62.0) fl RDW Coeff of Lcaudette (11.0-15.0) % Plt Count (150-400) K/uL MPV (7.40-12.00) fL Neut % (Auto) (48.0-80.0) % Lymph % (Auto) (16.0-40.0) % [place] % (Auto) (0.0-15.0) % Eos % (Auto) (0.0-7.0) % Baso % (Auto) (0.0-1.5) % Neut # (Auto) (1.4-5.7) K/uL Lymph # (Auto) (0.6-2.4) K/uL [place] # (Auto) (0.0-0.8) K/uL Eos # (Auto) (0.0-0.7) K/uL Baso # (Auto) (0.0-0.1) K/uL Nucleated RBC % /100WBC Nucleated RBCs # K/uL Sodium 147 (136-148) mmol/L Potassium 3.4 L (3.5-5.1) mmol/L Chloride 113 H (98-107) mmol/L Carbon Dioxide 27.7 (21.0-32.0) mmol/L BUN 18 (7.0-18.0) mg/dL Creatinine 0.8 (0.8-1.3) mg/dL Est Cr Clr Drug Dosing 121.52 mL/min Estimated GFR (MDRD) > 60.0 ml/min Glucose 102 (74-106) mg/dL POC Glucose 94 (70-99) mg/dL Calcium 7.5 L (8.5-10.1) mg/dL Phosphorus 3.3 (2.6-4.7) mg/dL Magnesium 1.7 L (1.8-2.4) mg/dL Crossmatch Med Orders - Current: Current Medications Acetaminophen (Acetaminophen 325 Mg/10.15 Ml Ml) 500 mg PEGTUBE Q4H PRN PRN Reason: Pain Albuterol/Ipratropium (Albuterol/Ipratropium 3.0-0.5 Mg/3 Ml Neb Soln) 3 ml NEB Q4HRRT PRN PRN Reason: Shortness of Breath Dextrose/Water (25% Dextrose In Water 10 Ml Syringe) 10 ml IVPUSH ONETIME PRN PRN Reason: Hypoglycemia Pantoprazole Sodium 40 mg/ (Sodium Chloride) 10 mls @ 200 mls/hr IV BID TOBY Last Admin: 09/17/20 08:09 Dose: 200 mls/hr Documented by: Dextrose/Lactated Ringer's (Dextrose 5%-Lactated Ringers) 1,000 mls @ 125 mls/hr IV ASDIRECTED TOBY Last Admin: 09/17/20 00:12 Dose: 125 mls/hr Documented by: Potassium Chloride/Sodium Chloride (Normal Saline With 20 Meq Kcl) 1,000 mls @ 150 mls/hr IV ASDIRECTED TOBY Last Admin: 09/16/20 08:07 Dose: 150 mls/hr Documented by: Piperacillin Sod/Tazobactam (Sod 3.375 gm/ Sodium Chloride) 50 mls @ 100 mls/hr IV Q8H TOBY Last Admin: 09/17/20 05:52 Dose: 100 mls/hr Documented by: Lorazepam (Lorazepam 2 Mg/Ml Sdv) 0.5 mg IVPUSH Q6H PRN PRN Reason: Anxiety Ondansetron HCl (Ondansetron 4 Mg/2 Ml Sdv) 4 mg IVPUSH Q4H PRN PRN Reason: Nausea Sodium Chloride (Sodium Chloride 0.9% 10 Ml Syringe) 10 ml FLUSH ASDIRECTED PRN PRN Reason: Keep Vein Open Last Admin: 09/14/20 22:40 Dose: 10 ml Documented by: Sodium Chloride (Sodium Chloride 0.9% 2.5 Ml Syringe) 2.5 ml FLUSH ASDIRECTED PRN PRN Reason: Keep Vein Open Last Admin: 09/14/20 22:40 Dose: 2.5 ml Documented by: Discontinued Medications Acetaminophen (Acetaminophen 325 Mg/10.15 Ml Ml) 496 mg PEGTUBE Q4H PRN PRN Reason: Pain Pantoprazole Sodium 40 mg/ (Sodium Chloride) 10 mls @ 300 mls/hr IV NOW ONE Stop: 09/14/20 22:32 Last Admin: 09/14/20 22:40 Dose: 300 mls/hr Documented by: Sodium Chloride (Normal Saline) 1,000 mls @ 1,000 mls/hr IV .Bolus ONE Stop: 09/14/20 23:33 Last Admin: 09/14/20 22:40 Dose: 1,000 mls/hr Documented by: Pantoprazole Sodium 80 mg/ (Sodium Chloride) 100 mls @ 10 mls/hr IV NOW ONE Stop: 09/15/20 11:13 Pantoprazole Sodium 40 mg/ (Sodium Chloride) 10 mls @ 300 mls/hr IVPUSH ONETIME ONE Stop: 09/15/20 01:32 Last Admin: 09/15/20 01:53 Dose: 300 mls/hr Documented by: Pantoprazole Sodium 80 mg/ (Sodium Chloride) 100 mls @ 10 mls/hr IV NOW ONE Stop: 09/15/20 11:44 Last Admin: 09/15/20 01:53 Dose: 10 mls/hr Documented by: Lactated Ringer's (Ringers, Lactated) 1,000 mls @ 125 mls/hr IV ASDIRECTED TOBY Last Infusion: 09/15/20 12:51 Dose: 125 mls/hr Documented by: Lactated Ringer's (Ringers, Lactated) 1,000 mls @ 999 mls/hr IV .BOLUS ONE Stop: 09/15/20 08:59 Last Admin: 09/15/20 08:37 Dose: 999 mls/hr Documented by: Magnesium Sulfate (Magnesium Sulfate In Water 2 Gm/50 Ml) 2 gm in 50 mls @ 50 mls/hr IV ONETIME ONE Stop: 09/16/20 08:26 Last Admin: 09/16/20 08:08 Dose: 50 mls/hr Documented by: Magnesium Sulfate (Magnesium Sulfate In Water 2 Gm/50 Ml) 2 gm in 50 mls @ 50 mls/hr IV ONETIME ONE Stop: 09/17/20 09:14 Last Admin: 09/17/20 08:10 Dose: 50 mls/hr Documented by: Pantoprazole Sodium (Pantoprazole 40 Mg Vial) Confirm Administered Dose 80 mg .ROUTE .STK-MED ONE Stop: 09/15/20 01:23 Last Admin: 09/15/20 01:33 Dose: Not Given Documented by: Sodium Bicarbonate (Sodium Bicarbonate 8.4% 50 Meq/50 Ml Syringe) Confirm Administered Dose 50 meq .ROUTE .STK-MED ONE Stop: 09/16/20 16:13 Last Admin: 09/16/20 16:42 Dose: Not Given Documented by: - Exam GI/Abdominal Exam: Normal Bowel Sounds, Soft, Non-Tender Sepsis Event Note - Evaluation Sepsis Screening Result: No Definite Risk - Focused Exam Vital Signs: Vital Signs Temp Pulse Resp BP Pulse Ox 09/17/20 08:06 97.7 F 86 17 102/55 L 95 09/17/20 03:42 96.9 F 76 16 91/58 L 94 L 09/17/20 00:04 98.1 F 85 16 101/56 L 94 L - Problem List Review Problem List Initiated/Reviewed/Updated: Yes - My Orders Last 24 Hours: Active Orders 24 hr Category Date Time Status Clear Liquid Diet [DIET] Diet 09/17/20 Breakfast Active Piperacillin/Tazobactam [Piperacil-Tazobact] 3.375 gm Med 09/16/20 14:00 Active Sodium Chloride 0.9% [Normal Saline] 50 ml IV Q8H PEG Tube Management [Percutaneous Endoscopic Gastostomy Oth 09/16/20 12:23 Ordered Tube] [OM.PC] QSHIFT Medication Orders Acetaminophen (Acetaminophen 325 Mg/10.15 Ml Ml) 500 mg PEGTUBE Q4H PRN PRN Reason: Pain Albuterol/Ipratropium (Albuterol/Ipratropium 3.0-0.5 Mg/3 Ml Neb Soln) 3 ml NEB Q4HRRT PRN PRN Reason: Shortness of Breath Dextrose/Water (25% Dextrose In Water 10 Ml Syringe) 10 ml IVPUSH ONETIME PRN PRN Reason: Hypoglycemia Pantoprazole Sodium 40 mg/ (Sodium Chloride) 10 mls @ 200 mls/hr IV BID [facility] Last Admin: 09/17/20 08:09 Dose: 200 mls/hr Documented by: Infusion: 09/16/20 21:05 Dose: 200 mls/hr Documented by: Admin: 09/16/20 21:02 Dose: 200 mls/hr Documented by: Infusion: 09/16/20 08:10 Dose: 200 mls/hr Documented by: Admin: 09/16/20 08:07 Dose: 200 mls/hr Documented by: Infusion: 09/15/20 21:47 Dose: 200 mls/hr Documented by: Admin: 09/15/20 21:44 Dose: 200 mls/hr Documented by: LIANNA Dextrose/Lactated Ringer's (Dextrose 5%-Lactated Ringers) 1,000 mls @ 125 mls/hr IV ASDIRECTED [facility] Last Admin: 09/17/20 00:12 Dose: 125 mls/hr Documented by: Infusion: 09/17/20 00:12 Dose: 125 mls/hr Documented by: Admin: 09/16/20 15:44 Dose: 125 mls/hr Documented by: Infusion: 09/16/20 10:32 Dose: 125 mls/hr Documented by: Admin: 09/16/20 02:32 Dose: 125 mls/hr Documented by: Infusion: 09/16/20 02:32 Dose: 125 mls/hr Documented by: Admin: 09/15/20 18:41 Dose: 125 mls/hr Documented by: VAANI Potassium Chloride/Sodium Chloride (Normal Saline With 20 Meq Kcl) 1,000 mls @ 150 mls/hr IV ASDIRECTED [facility] Last Admin: 09/16/20 08:07 Dose: 150 mls/hr Documented by: AZALEA Piperacillin Sod/Tazobactam (Sod 3.375 gm/ Sodium Chloride) 50 mls @ 100 mls/hr IV Q8H [facility] Last Admin: 09/17/20 05:52 Dose: 100 mls/hr Documented by: Infusion: 09/16/20 21:38 Dose: 100 mls/hr Documented by: Admin: 09/16/20 21:08 Dose: 100 mls/hr Documented by: Infusion: 09/16/20 14:57 Dose: 100 mls/hr Documented by: Admin: 09/16/20 14:27 Dose: 100 mls/hr Documented by: AVANI Lorazepam (Lorazepam 2 Mg/Ml Sdv) 0.5 mg IVPUSH Q6H PRN PRN Reason: Anxiety Ondansetron HCl (Ondansetron 4 Mg/2 Ml Sdv) 4 mg IVPUSH Q4H PRN PRN Reason: Nausea Sodium Chloride (Sodium Chloride 0.9% 10 Ml Syringe) 10 ml FLUSH ASDIRECTED PRN PRN Reason: Keep Vein Open Last Admin: 09/14/20 22:40 Dose: 10 ml Documented by: LINDSEY Sodium Chloride (Sodium Chloride 0.9% 2.5 Ml Syringe) 2.5 ml FLUSH ASDIRECTED PRN PRN Reason: Keep Vein Open Last Admin: 09/14/20 22:40 Dose: 2.5 ml Documented by: LINDSEY - Assessment Assessment (Free Text/Narrative):: h/h dropped, large BRBPR over night; diverticulitis bleeding; would benefit from transferring to teritiary care facility for embolization; plan dw medical attending; ok to see me in office 2 - 3 wks later when return to [facility] for fu endoscopy studies; tks for the care and consult of this pleasent gentleman - Plan Plan (Free Text/Narrative):: h/h dropped, large BRBPR over night; diverticulitis bleeding; would benefit from transferring to teritiary care facility for embolization; plan dw medical attending; ok to see me in office 2 - 3 wks later when return to [facility] for fu endoscopy studies; tks for the care and consult of this christo painter
--- NOTE | 2020-09-17 12:23 | PCM.DCSUM1 ---
Discharge Summary - Discharge Data Discharge Disposition: Home, Self-Care 01 Condition: Stable - Referral to Home Health Primary Care Physician: Carlton Jha MD - Discharge Diagnosis/Problem(s) (1) GI bleed SNOMED Code(s): 13819652 ICD Code: K92.2 - GASTROINTESTINAL HEMORRHAGE, UNSPECIFIED Status: Acute Current Visit: Yes (2) CVA, Cerebrovascular accident SNOMED Code(s): 000188199 ICD Code: I63.9 - CEREBRAL INFARCTION, UNSPECIFIED Status: Acute Current Visit: No - Patient Summary/Data Consults: Consultations 09/15/20 05:12 Consult to Physician [CONS] Routine - Discharge Plan Home Medications: Home Meds Acetaminophen [Tylenol Solution 160 MG/5 ML] 1,000 mg PEGTUBE Q6HR PRN 09/16/16 [History] Aspirin [Adult Low Dose Aspirin EC] 81 mg PEGTUBE DAILY 09/16/16 [History] Sennosides/Docusate Sodium [Sennosides-Docusate Sodium] 1 tab PEGTUBE BID 09/16/16 [History] atorvaSTATin Calcium [Atorvastatin Calcium] 10 mg PEGTUBE BEDTIME 09/16/16 [History] Losartan Potassium 25 mg PEGTUBE DAILY 04/17/17 [History] Cyclobenzaprine [Flexeril] 5 mg PEGTUBE TID 09/14/20 [History] Ergocalciferol (Vitamin D2) [Calcidol] 0.5 ml PEGTUBE DAILY 09/14/20 [History] Famotidine 40 mg PEGTUBE BEDTIME 09/14/20 [History] Fluticasone Propionate [Flonase] 1 spray NASBOTH DAILY 09/14/20 [History] Mirtazapine 15 mg PEGTUBE BEDTIME 09/14/20 [History] Pregabalin [Lyrica] 50 mg PEGTUBE TID 09/14/20 [History] Zolpidem [Ambien] 10 mg PEGTUBE BEDTIME 09/14/20 [History] polyethylene glycoL 3350 [MiraLAX] 17 gm PEGTUBE DAILY 09/14/20 [History] Carboxymethylcellulose Sodium [Refresh Tears] 15 ml QID 09/15/20 [History] Magnesium Hydroxide [Milk of Magnesia] 30 ml PO DAILY PRN 09/15/20 [History] Menthol [Biofreeze] 118 ml TP BID 09/15/20 [History] Psyllium Husk (With Sugar) [Fiber Powder] 368 gm PO DAILY 09/15/20 [History] Patient Handouts: Gastrointestinal Bleeding, [id number] Referrals: Carlton Jha MD [Primary Care Provider] - - Patient Data Vitals - Most Recent: Last Vital Signs Temp 36.6 C 09/17/20 11:20 Pulse 87 09/17/20 11:20 Resp 18 09/17/20 11:20 BP 102/64 09/17/20 11:20 Pulse Ox 95 09/17/20 08:06 Weight - Most Recent: 72.575 kg I&O - Last 24 hours: Intake & Output 09/16/20 09/17/20 09/17/20 22:59 06:59 14:59 Intake Total 2078 0 22 Output Total 1300 700 Balance 778 -700 22 Lab Results - Last 24 hrs: Laboratory Results - last 24 hr 09/14/20 09/16/20 09/16/20 Range/Units 23:23 14:05 17:50 WBC (4.0-11.0) K/uL RBC (4.50-5.90) M/uL Hgb 10.6 L (13.0-17.0) g/dL Hct 31.8 L (38.0-50.0) % MCV (80.0-98.0) fL MCH (27.0-32.0) pg MCHC (31.0-37.0) g/dL RDW Std Deviation (28.0-62.0) fl RDW Coeff of Claudette (11.0-15.0) % Plt Count (150-400) K/uL MPV (7.40-12.00) fL Neut % (Auto) (48.0-80.0) % Lymph % (Auto) (16.0-40.0) % [place] % (Auto) (0.0-15.0) % Eos % (Auto) (0.0-7.0) % Baso % (Auto) (0.0-1.5) % Neut # (Auto) (1.4-5.7) K/uL Lymph # (Auto) (0.6-2.4) K/uL Garrett # (Auto) (0.0-0.8) K/uL Eos # (Auto) (0.0-0.7) K/uL Baso # (Auto) (0.0-0.1) K/uL Nucleated RBC % /100WBC Nucleated RBCs # K/uL Sodium (136-148) mmol/L Potassium (3.5-5.1) mmol/L Chloride (98-107) mmol/L Carbon Dioxide (21.0-32.0) mmol/L BUN (7.0-18.0) mg/dL Creatinine (0.8-1.3) mg/dL Est Cr Clr Drug Dosing mL/min Estimated GFR (MDRD) ml/min Glucose (74-106) mg/dL POC Glucose 88 (70-99) mg/dL Calcium (8.5-10.1) mg/dL Phosphorus (2.6-4.7) mg/dL Magnesium (1.8-2.4) mg/dL Blood Type O POSITIVE Antibody Screen NEGATIVE Crossmatch See Detail 09/17/20 09/17/20 09/17/20 Range/Units 00:10 05:32 05:32 WBC 5.23 (4.0-11.0) K/uL RBC 2.71 L (4.50-5.90) M/uL Hgb 8.1 L (13.0-17.0) g/dL Hct 24.8 L (38.0-50.0) % MCV 91.5 (80.0-98.0) fL MCH 29.9 (27.0-32.0) pg MCHC 32.7 (31.0-37.0) g/dL RDW Std Deviation 45.4 (28.0-62.0) fl RDW Coeff of Claudette 14 (11.0-15.0) % Plt Count 149 L (150-400) K/uL MPV 11.30 (7.40-12.00) fL Neut % (Auto) 55.8 (48.0-80.0) % Lymph % (Auto) 31.0 (16.0-40.0) % [place] % (Auto) 11.7 (0.0-15.0) % Eos % (Auto) 1.1 (0.0-7.0) % Baso % (Auto) 0.4 (0.0-1.5) % Neut # (Auto) 2.9 (1.4-5.7) K/uL Lymph # (Auto) 1.6 (0.6-2.4) K/uL Garrett # (Auto) 0.6 (0.0-0.8) K/uL Eos # (Auto) 0.1 (0.0-0.7) K/uL Baso # (Auto) 0.0 (0.0-0.1) K/uL Nucleated RBC % 0.0 /100WBC Nucleated RBCs # 0 K/uL Sodium 147 (136-148) mmol/L Potassium 3.4 L (3.5-5.1) mmol/L Chloride 113 H (98-107) mmol/L Carbon Dioxide 27.7 (21.0-32.0) mmol/L BUN 18 (7.0-18.0) mg/dL Creatinine 0.8 (0.8-1.3) mg/dL Est Cr Clr Drug Dosing 121.52 mL/min Estimated GFR (MDRD) > 60.0 ml/min Glucose 102 (74-106) mg/dL POC Glucose 94 (70-99) mg/dL Calcium 7.5 L (8.5-10.1) mg/dL Phosphorus 3.3 (2.6-4.7) mg/dL Magnesium 1.7 L (1.8-2.4) mg/dL Blood Type Antibody Screen Crossmatch 09/17/20 09/17/20 Range/Units 05:55 12:05 WBC (4.0-11.0) K/uL RBC (4.50-5.90) M/uL Hgb (13.0-17.0) g/dL Hct (38.0-50.0) % MCV (80.0-98.0) fL MCH (27.0-32.0) pg MCHC (31.0-37.0) g/dL RDW Std Deviation (28.0-62.0) fl RDW Coeff of Claudette (11.0-15.0) % Plt Count (150-400) K/uL MPV (7.40-12.00) fL Neut % (Auto) (48.0-80.0) % Lymph % (Auto) (16.0-40.0) % Garrett % (Auto) (0.0-15.0) % Eos % (Auto) (0.0-7.0) % Baso % (Auto) (0.0-1.5) % Neut # (Auto) (1.4-5.7) K/uL Lymph # (Auto) (0.6-2.4) K/uL Garrett # (Auto) (0.0-0.8) K/uL Eos # (Auto) (0.0-0.7) K/uL Baso # (Auto) (0.0-0.1) K/uL Nucleated RBC % /100WBC Nucleated RBCs # K/uL Sodium (136-148) mmol/L Potassium (3.5-5.1) mmol/L Chloride (98-107) mmol/L Carbon Dioxide (21.0-32.0) mmol/L BUN (7.0-18.0) mg/dL Creatinine (0.8-1.3) mg/dL Est Cr Clr Drug Dosing mL/min Estimated GFR (MDRD) ml/min Glucose (74-106) mg/dL POC Glucose 94 99 (70-99) mg/dL Calcium (8.5-10.1) mg/dL Phosphorus (2.6-4.7) mg/dL Magnesium (1.8-2.4) mg/dL Blood Type Antibody Screen Crossmatch Med Orders - Current: Current Medications Acetaminophen (Acetaminophen 325 Mg/10.15 Ml Ml) 500 mg PEGTUBE Q4H PRN PRN Reason: Pain Albuterol/Ipratropium (Albuterol/Ipratropium 3.0-0.5 Mg/3 Ml Neb Soln) 3 ml NEB Q4HRRT PRN PRN Reason: Shortness of Breath Dextrose/Water (25% Dextrose In Water 10 Ml Syringe) 10 ml IVPUSH ONETIME PRN PRN Reason: Hypoglycemia Pantoprazole Sodium 40 mg/ (Sodium Chloride) 10 mls @ 200 mls/hr IV BID [facility] Last Admin: 09/17/20 08:09 Dose: 200 mls/hr Documented by: Dextrose/Lactated Ringer's (Dextrose 5%-Lactated Ringers) 1,000 mls @ 125 mls/hr IV ASDIRECTED [facility] Last Admin: 09/17/20 00:12 Dose: 125 mls/hr Documented by: Potassium Chloride/Sodium Chloride (Normal Saline With 20 Meq Kcl) 1,000 mls @ 150 mls/hr IV ASDIRECTED [facility] Last Admin: 09/16/20 08:07 Dose: 150 mls/hr Documented by: Piperacillin Sod/Tazobactam (Sod 3.375 gm/ Sodium Chloride) 50 mls @ 100 mls/hr IV Q8H [facility] Last Admin: 09/17/20 05:52 Dose: 100 mls/hr Documented by: Lorazepam (Lorazepam 2 Mg/Ml Sdv) 0.5 mg IVPUSH Q6H PRN PRN Reason: Anxiety Ondansetron HCl (Ondansetron 4 Mg/2 Ml Sdv) 4 mg IVPUSH Q4H PRN PRN Reason: Nausea Sodium Chloride (Sodium Chloride 0.9% 10 Ml Syringe) 10 ml FLUSH ASDIRECTED PRN PRN Reason: Keep Vein Open Last Admin: 09/14/20 22:40 Dose: 10 ml Documented by: Sodium Chloride (Sodium Chloride 0.9% 2.5 Ml Syringe) 2.5 ml FLUSH ASDIRECTED PRN PRN Reason: Keep Vein Open Last Admin: 09/14/20 22:40 Dose: 2.5 ml Documented by: Discontinued Medications Acetaminophen (Acetaminophen 325 Mg/10.15 Ml Ml) 496 mg PEGTUBE Q4H PRN PRN Reason: Pain Pantoprazole Sodium 40 mg/ (Sodium Chloride) 10 mls @ 300 mls/hr IV NOW ONE Stop: 09/14/20 22:32 Last Admin: 09/14/20 22:40 Dose: 300 mls/hr Documented by: Sodium Chloride (Normal Saline) 1,000 mls @ 1,000 mls/hr IV .Bolus ONE Stop: 09/14/20 23:33 Last Admin: 09/14/20 22:40 Dose: 1,000 mls/hr Documented by: Pantoprazole Sodium 80 mg/ (Sodium Chloride) 100 mls @ 10 mls/hr IV NOW ONE Stop: 09/15/20 11:13 Pantoprazole Sodium 40 mg/ (Sodium Chloride) 10 mls @ 300 mls/hr IVPUSH ONETIME ONE Stop: 09/15/20 01:32 Last Admin: 09/15/20 01:53 Dose: 300 mls/hr Documented by: Pantoprazole Sodium 80 mg/ (Sodium Chloride) 100 mls @ 10 mls/hr IV NOW ONE Stop: 09/15/20 11:44 Last Admin: 09/15/20 01:53 Dose: 10 mls/hr Documented by: Lactated Ringer's (Ringers, Lactated) 1,000 mls @ 125 mls/hr IV ASDIRECTED TOBY Last Infusion: 09/15/20 12:51 Dose: 125 mls/hr Documented by: Lactated Ringer's (Ringers, Lactated) 1,000 mls @ 999 mls/hr IV .BOLUS ONE Stop: 09/15/20 08:59 Last Admin: 09/15/20 08:37 Dose: 999 mls/hr Documented by: Magnesium Sulfate (Magnesium Sulfate In Water 2 Gm/50 Ml) 2 gm in 50 mls @ 50 mls/hr IV ONETIME ONE Stop: 09/16/20 08:26 Last Admin: 09/16/20 08:08 Dose: 50 mls/hr Documented by: Magnesium Sulfate (Magnesium Sulfate In Water 2 Gm/50 Ml) 2 gm in 50 mls @ 50 mls/hr IV ONETIME ONE Stop: 09/17/20 09:14 Last Admin: 09/17/20 08:10 Dose: 50 mls/hr Documented by: Pantoprazole Sodium (Pantoprazole 40 Mg Vial) Confirm Administered Dose 80 mg .ROUTE .STK-MED ONE Stop: 09/15/20 01:23 Last Admin: 09/15/20 01:33 Dose: Not Given Documented by: Sodium Bicarbonate (Sodium Bicarbonate 8.4% 50 Meq/50 Ml Syringe) Confirm Administered Dose 50 meq .ROUTE .STK-MED ONE Stop: 09/16/20 16:13 Last Admin: 09/16/20 16:42 Dose: Not Given Documented by:
[2020-09-17 12:34] VITALS: BP 101/62; PULSE 89
== END 2020-09-17 12:31 | DRG 378 ==
LOC: MW.ED 22:25 → MW.MS 09-15 01:03 → OBSVTOIN 09-16 15:54
PROVIDERS: ADMIT Student in an Organized Health Care Education/Training Program; ATTEND Student in an Organized Health Care Education/Training Program
PROC: 30233N1 Transfusion of Nonautologous Red Blood Cells into Peripheral Vein, Percutaneous Approach (ICD-10-PCS; principal; 2020-09-16)
DX: K92.1 Melena (principal); K57.33 Diverticulitis of large intestine without perforation or abscess with bleeding; I69.354 Hemiplegia and hemiparesis following cerebral infarction affecting left non-dominant side; Z86.711 Personal history of pulmonary embolism; K21.9 Gastro-esophageal reflux disease without esophagitis; I69.320 Aphasia following cerebral infarction; I69.390 Apraxia following cerebral infarction; F91.9 Conduct disorder, unspecified; I10 Essential (primary) hypertension; E78.00 Pure hypercholesterolemia, unspecified; J44.9 Chronic obstructive pulmonary disease, unspecified; Z93.1 Gastrostomy status; Z20.822 Contact with and (suspected) exposure to COVID-19; F41.9 Anxiety disorder, unspecified; F32.9 Major depressive disorder, single episode, unspecified; Z87.891 Personal history of nicotine dependence; Z79.82 Long term (current) use of aspirin; Z79.899 Other long term (current) drug therapy
CPT/HCPCS: 36415 ×3; 36430 ×2; 71045; 80048; 80053 ×2; 82947 ×5; 83605 ×3; 83690; 83735; 84100; 85014 ×4; 85018 ×4; 85025 ×3; 85610; 85730; 86850; 86900; 86901; 86920 ×2; 86921 ×2; 86922 ×2; 93005; 96374; 99285; C9113 ×5; J2543; J3475; J3480; J7030; J7120 ×3; J7121 ×3; P9016 ×2; U0002; 93010; 96365; 96376; 99283

== ENCOUNTER 2022-09-10 08:13 | Day surgery (SDC) | payer MEDICARE, MEDICAID ==
[~2022-09-10 08:13] MED LIST: Lactated Ringers 1,000 ML IV SCH
[2022-09-10] MEDS ORDERED: fentaNYL 100 MCG/2 ML SDV ONE (08:14)
[2022-09-10] MEDS ORDERED: Lidocaine 2% 5 ML SDV ONE (08:14)
[2022-09-10] MEDS ORDERED: Propofol 200 MG/20 ML SDV ONE (08:14)
[2022-09-10 10:45] VITALS: BP 110/66; PULSE 57
== END 2022-09-10 11:17 | disposition home or self-care (01) ==
LOC: MW.SDS 08:13
PROVIDERS: ATTEND Surgery
DX: K57.30 Diverticulosis of large intestine without perforation or abscess without bleeding (principal); F41.9 Anxiety disorder, unspecified; F32.A Depression, unspecified; K21.9 Gastro-esophageal reflux disease without esophagitis; E78.00 Pure hypercholesterolemia, unspecified; Z87.891 Personal history of nicotine dependence; Z79.899 Other long term (current) drug therapy
CPT/HCPCS: 45380; J2704; J3010; J7120; J3490